=== PATIENT | female | born 1950 | race Caucasian/White ===

== ENCOUNTER 2021-12-25 14:02 | Outpatient (CLI) | payer MEDICARE, BC, SELFPAY ==
[2021-12-25 11:43] LABS: Chloride* 99 mmol/L (96-114); Potassium* 3.8 mmol/L (3.6-5.1); Sodium* 136 mmol/L (135-149)
[2021-12-25 11:46] LABS: Blood Urea Nitrogen* 14 mg/dL (7-30); Carbon Dioxide* 28 mmol/L (20-32); Cholesterol* 214 mg/dL (90-199); Creatinine* 0.7 mg/dL (0.5-1.5); Estimated Glomerular Filt Rate 94 ml/min; Glucose* 111 mg/dL (60-115)
[2021-12-25 11:47] LABS: Calcium* 9.3 mg/dL (8.4-10.6); HDL Cholesterol* 81 mg/dL (>=50); LDL Cholesterol Calculated 114 mg/dL (<100); Triglycerides* 95 mg/dL (40-149)
[2021-12-25 12:01] LABS: Vitamin D 25 Hydroxy* 46 ng/mL (30-80)
== END 2021-12-25 14:03 | disposition home or self-care (01) ==
PROVIDERS: PCP Internal Medicine; Visit Provider Internal Medicine
DX: Z00.00 Encounter for general adult medical examination without abnormal findings (principal); I10 Essential (primary) hypertension; E78.5 Hyperlipidemia, unspecified; M85.80 Other specified disorders of bone density and structure, unspecified site
CPT/HCPCS: 80048; 80061; 82306; 82652

== ENCOUNTER 2022-02-11 09:10 | Outpatient (CLI) | payer MEDICARE, BC, SELFPAY ==
--- NOTE | 2022-02-11 09:15 | CRLHL7_ITS ---
For Patients: As a result of the Century Cures Act, medical imaging exams and procedure reports are released immediately into your electronic medical record. You may view this report before your referring provider. If you have questions, please contact your health care provider. BILATERAL SCREENING MAMMOGRAM WITH COMPUTER-AIDED DETECTION AND TOMOSYNTHESIS, 02/11/2022 TECHNIQUE: CC and MLO views were obtained. These mammographic images have been obtained using full-field digital technique. These mammographic images were interpreted with the benefit of computer-aided detection. Breast tomosynthesis was used in this interpretation. COMPARISON FILM: 01/16/21, 12/08/19, 10/19/18. FINDINGS: There are scattered areas of fibroglandular density. IMPRESSION: There is no radiographic evidence for malignancy. ASSESSMENT: BI-RADS Category 1: Negative RECOMMENDATION: Routine screening mammogram in 1 year. A lay language report of this examination will be provided to the patient. DEMETRIUS MARAVILLA M.D. Diagnostic Radiologist [email or web address] Transcribed: 5:[address]/Dictated by: Demetrius Maravilla MD @ 02/11/2022 10:25:00 AM (Electronically Signed)
== END 2022-02-11 09:11 | disposition home or self-care (01) ==
PROVIDERS: PCP Internal Medicine; Visit Provider Internal Medicine
DX: Z12.31 Encounter for screening mammogram for malignant neoplasm of breast (principal)
CPT/HCPCS: 77063; 77067

== ENCOUNTER 2022-12-27 08:33 | Outpatient (CLI) | payer MEDICARE, BC, SELFPAY | END 2022-12-27 08:34 | disposition home or self-care (01) | LOC: NFLDREF 12-28 09:58 | PROVIDERS: PCP Internal Medicine; Referring Provider Internal Medicine; Visit Provider Internal Medicine | DX: I10 Essential (primary) hypertension (principal); E78.5 Hyperlipidemia, unspecified; M85.80 Other specified disorders of bone density and structure, unspecified site | CPT/HCPCS: 80048; 80061; 82306 ==

== ENCOUNTER 2023-02-12 11:23 | Outpatient (CLI) | payer MEDICARE, BC, SELFPAY ==
--- NOTE | 2023-02-12 11:30 | CRLHL7_ITS ---
For Patients: As a result of the Century Cures Act, medical imaging exams and procedure reports are released immediately into your electronic medical record. You may view this report before your referring provider. If you have questions, please contact your health care provider. BILATERAL SCREENING MAMMOGRAM WITH COMPUTER-AIDED DETECTION AND TOMOSYNTHESIS TECHNIQUE: CC and MLO views were obtained. These mammographic images have been obtained using full-field digital technique. These mammographic images were interpreted with the benefit of computer-aided detection. Breast Tomosynthesis was used in this interpretation. COMPARISON FILM: 02/11/22, 01/16/21, 12/08/19. FINDINGS: There are scattered areas of fibroglandular density IMPRESSION: There is no radiographic evidence for malignancy. ASSESSMENT: BI-RADS Category 1: Negative RECOMMENDATION: Routine screening mammogram in 1 year. A lay language report of this examination will be provided to the patient. Demetrius Butts M.D. Diagnostic Radiologist [email or web address] MIGUEL ANGEL/Dictated by: Demetrius Butts MD @ 02/12/2023 12:30:00 PM (Electronically Signed)
== END 2023-02-12 11:24 | disposition home or self-care (01) ==
LOC: MAMMO 11:24
PROVIDERS: PCP Internal Medicine; Visit Provider Internal Medicine
DX: Z12.31 Encounter for screening mammogram for malignant neoplasm of breast (principal)
CPT/HCPCS: 77063; 77067

== ENCOUNTER 2023-11-02 06:27 | Inpatient (IN) | payer MEDICARE, BC, SELFPAY ==
[2023-11-02] VITALS (7 sets, daily range): BP systolic 106–162; BP diastolic 46–73; PULSE 62–91; RESP 16–20; TEMP 36.2–36.9; O2SAT 95–100; BMI 21.9; BMI 22.8
--- NOTE | 2023-11-02 06:47 | ED.ABDPAIN ---
HPI - Abdominal Pain General Chief Complaint: Abdominal Pain <Rodrick Leon MD - Last Filed: 11/03/23 07:40> Stated Complaint: abd pain started last night <Rodrick Leon MD - Last Filed: 11/03/23 07:40> Time Seen by Provider: 11/02/23 06:41 <Rodrick Leon MD - Last Filed: 11/03/23 07:40> History of Present Illness HPI narrative: Patient is a 72-year-old woman who comes in today approximately 12 hours after the onset of nausea vomiting diarrhea. Nausea vomiting diarrhea have largely resolved but she is left with severe dull lower abdominal pain in the midline. She has no upper abdominal pain no reflux no chest pain no shortness of breath. Patient is status post appendectomy. Pain is 6/10 but persistant. <Rodrick Leon MD - Last Filed: 11/03/23 07:40> Related Data Home Medications: Home Medications ?Medication ?Instructions ?Recorded ?Confirmed calcium carbonate 600 mg-vitamin 1 tab PO DAILY 11/02/23 11/02/23 D3 5 mcg (200 unit) tablet (Calcium 600 + D(3)) simvastatin 20 mg tablet 20 mg PO HS 11/02/23 11/02/23 Previous Rx's ?Medication ?Instructions ?Recorded valsartan 80 1 tab PO DAILY #90 tabs 08/21/23 mg-hydrochlorothiazide 12.5 mg tablet <Rodrick Leon MD - Last Filed: 11/03/23 07:40> Allergies/Adverse Reactions: Allergies Allergy/AdvReac Type Severity Reaction Status Date / Time No Known Allergies Allergy Verified 11/02/23 06:44 <Rodrick Leon MD - Last Filed: 11/03/23 07:40> Review of Systems Status of ROS Reports: 10 or more systems reviewed and unremarkable except as noted in History and below <Rodrick Leon MD - Last Filed: 11/03/23 07:40> PFSH PFSH Surgical History: Surgical History History of cataract surgery ?Z98.49 - Cataract extraction status, unspecified eye (ICD-10) S/P thyroid biopsy ?Z98.890 - Other specified postprocedural states (ICD-10) History of repair of rectocele ?Z98.890 - Other specified postprocedural states (ICD-10) History of vitrectomy (2018) ?Z98.890 - Other specified postprocedural states (ICD-10) History of tonsillectomy (12/05/10) ?Z90.89 - Acquired absence of other organs (ICD-10) History of left inguinal hernia repair (01/06/12) ?Z98.890 - Other specified postprocedural states (ICD-10) ?Z87.19 - Personal history of other diseases of the digestive system (ICD-10) History of section (12/05/10) ?Z98.891 - History of uterine scar from previous surgery (ICD-10) History of appendectomy (12/05/10) ?Z90.49 - Acquired absence of other specified parts of digestive tract (ICD-10) <Rodrick Leon MD - Last Filed: 11/03/23 07:40> Social History: Social History What is your current living situation?: I presently have a place to live Problems where you live: no known problems Problems where you live details: N/A In the past 12 months, utilities in danger of being shut off: no In past 12 months, lack of transportation kept you from medical appts, meetings, work, or getting things needed for daily living: no In the past 12 mos, have been you worried that your food would run out before you had money to buy more?: never true In the past 12 mos, the food you bought just didn't last and you didn't have money to buy more?: never true Highest level of school completed/degree received: Master's degree Smoking Status: Never smoker How often do you have a drink containing alcohol: 2-4 times a month Alcohol type: wine How many standard drinks containing alcohol do you have on a typical day: 1 or 2 How often do you have six or more drinks on one occasion: Never AUDIT-C Alcohol total score: 2 Non-prescribed substance use: denies use Caffeine: Yes How often does anyone, including family, friends and others, physically hurt you: never How often does anyone, including family, friends and others, insult or talk down to you: never How often does anyone, including family, friends and others, threaten you with harm: never How often does anyone, including family, friends and others, scream or curse at you: never Little interest or pleasure in doing things: not at all Feeling down, depressed, or hopeless: not at all service: No <Rodrick Leon MD - Last Filed: 11/03/23 07:40> Exam Narrative: Exam Narrative: EXAM GENERAL: Patient appears comfortable and well. EYES: No scleral icterus. LYMPH: No supraclavicular or cervical lymphadenopathy. SKIN: Visible skin seen during exam normal or with benign process only. EXT: No dependent lower extremity pedal edema. HEART: Regular rate and rhythm with no murmurs, rubs, or gallops. LUNGS: Clear to auscultation bilaterally with no crackles or wheezes. ABD: Soft, non tender, non distended. PSYCH: Good eye contact, speech is not pressured. <Rodrick Leon MD - Last Filed: 11/03/23 07:40> Const: Vital Signs, click to edit/add: Vital Signs - 24 hr 11/02/23 08:32 11/02/23 08:44 11/02/23 09:39 Temperature 97.5 F L Pulse Rate [Left P ulse Oximeter] 69 Pulse Rate [Pulse Oximeter] 79 Respiratory Rate 16 18 Blood Pressure [Le ft Arm] 162/65 H Blood Pressure [Le ft Forearm] 146/73 H Pulse Oximetry 99 99 100 Oxygen Delivery Me thod Room Air Room Air <Rodrick Leon MD - Last Filed: 11/03/23 07:40> Vital Signs, click to edit/add: Vital Signs - 24 hr 11/02/23 08:32 11/02/23 08:44 11/02/23 09:39 Temperature 97.5 F L Pulse Rate [Left P ulse Oximeter] 69 Pulse Rate [Pulse Oximeter] 79 Respiratory Rate 16 18 Blood Pressure [Le ft Arm] 162/65 H Blood Pressure [Le ft Forearm] 146/73 H Pulse Oximetry 99 99 100 Oxygen Delivery Me thod Room Air Room Air <Cornelia Zavaleta MD - Last Filed: 11/02/23 09:02> Course Course ED Course: Patient seen examined CBC CMP amylase UA CT abdomen pelvis pending. <Rodrick Leon MD - Last Filed: 11/03/23 07:40> Reevaluation(s) Time of Reevaluation #1: 08:31 <Cornelia Zavaleta MD - Last Filed: 11/02/23 09:02> Reevaluation #1: Reviewed CT findings with patient. She does have colitis on CT. Still with significant abdominal pain, no appetite at all, nausea. Has had prior colonoscopies that were normal without polyps, did fecal testing for occult blood this past time. No travel. No NSAID use. Also reviewed the incidental findings with the liver mass uncharacterized, will need outpatient liver MRI protocol as advised by radiology, copy of the report given to them. Patient very well may need supportive cares with IV fluids and pain management until improving. Will discuss with the hospitalist. Can do trial of clears here and see if she tolerates. <Cornelia Zavaleta MD - Last Filed: 11/02/23 09:02> Consultations Consultation #1: Reviewed case with Dr. Wright, he will evaluate the patient for possible hospitalization. <Cornelia Zavaleta MD - Last Filed: 11/02/23 09:02> Time: 09:01 <Cornelia Zavaleta MD - Last Filed: 11/02/23 09:02> Vital Signs Vital signs: Initial Vital Signs Temperature 97.1 F L 11/02/23 06:44 Temperature Source Temporal Artery Scan 11/02/23 06:44 Pulse Rate 91 11/02/23 06:44 Pulse Rhythm Regular 11/02/23 06:44 Pulse Strength 3+ Normal 11/02/23 06:44 Respiratory Rate 20 11/02/23 06:44 Blood Pressure 122/63 11/02/23 06:44 Blood Pressure Mean 82 11/02/23 06:44 Blood Pressure Position Sitting 11/02/23 06:44 Pulse Oximetry 95 11/02/23 06:44 Oxygen Delivery Method Room Air 11/02/23 06:44 Vital Signs Temperature 97.1 F L 11/02/23 06:44 Pulse Rate 91 11/02/23 06:44 Respiratory Rate 20 11/02/23 06:44 Blood Pressure 122/63 11/02/23 06:44 Pulse Oximetry 95 11/02/23 06:44 Oxygen Delivery Method Room Air 11/02/23 06:44 Temperature 98.1 F 11/03/23 03:00 Pulse Rate 61 11/03/23 03:00 Respiratory Rate 16 11/03/23 03:00 Blood Pressure 109/58 L 11/03/23 03:00 Pulse Oximetry 93 11/03/23 03:00 Oxygen Delivery Method Room Air 11/03/23 03:00 <Rodrick Leon MD - Last Filed: 11/03/23 07:40> Initial Vital Signs Temperature 97.1 F L 11/02/23 06:44 Temperature Source Temporal Artery Scan 11/02/23 06:44 Pulse Rate 91 11/02/23 06:44 Pulse Rhythm Regular 11/02/23 06:44 Pulse Strength 3+ Normal 11/02/23 06:44 Respiratory Rate 20 11/02/23 06:44 Blood Pressure 122/63 11/02/23 06:44 Blood Pressure Mean 82 11/02/23 06:44 Blood Pressure Position Sitting 11/02/23 06:44 Pulse Oximetry 95 11/02/23 06:44 Oxygen Delivery Method Room Air 11/02/23 06:44 Vital Signs Temperature 97.1 F L 11/02/23 06:44 Pulse Rate 91 11/02/23 06:44 Respiratory Rate 20 11/02/23 06:44 Blood Pressure 122/63 11/02/23 06:44 Pulse Oximetry 95 11/02/23 06:44 Oxygen Delivery Method Room Air 11/02/23 06:44 Temperature 98.1 F 11/03/23 03:00 Pulse Rate 61 11/03/23 03:00 Respiratory Rate 16 11/03/23 03:00 Blood Pressure 109/58 L 11/03/23 03:00 Pulse Oximetry 93 11/03/23 03:00 Oxygen Delivery Method Room Air 11/03/23 03:00 <Cornelia Zavaleta MD - Last Filed: 11/02/23 09:02> Medications Administered Medications: Generic Name Dose Route Start Last Admin Trade Name Freq PRN Reason Stop Dose Admin Enoxaparin Sodium 40 mg 11/02/23 21:00 11/02/23 22:13 Enoxaparin 40 Mg/0.4 Ml Inj SUBCUT Not Given HS SASHA Hydromorphone HCl 0.5 mg 11/02/23 11:01 11/03/23 05:05 Hydromorphone 0.5 Mg/0.5 Ml Inj IVP 0.5 mg Q1H PRN Administration Lactated Ringer's 1,000 mls @ 125 mls/hr 11/02/23 11:05 11/03/23 03:04 Lactated Ringers 1000 Ml IV 125 mls/hr .Q8H SASHA Administration Ciprofloxacin 400 mg in 200 mls @ 200 mls/hr 11/02/23 11:30 11/03/23 01:13 Ciprofloxacin IVPB Infused Q12H SASHA Infusion Metronidazole 500 mg in 100 mls @ 100 mls/hr 11/02/23 12:30 11/03/23 06:38 Metronidazole IVPB Infused Q8H SASHA Infusion Ondansetron HCl 4 mg 11/02/23 11:02 11/03/23 05:05 Ondansetron 2 Mg/Ml Inj IVP 4 mg Q4H PRN Administration Nausea Simvastatin 20 mg 11/02/23 22:21 11/02/23 22:30 Simvastatin 20 Mg Tablet PO 20 mg HS SASHA Administration Sodium Chloride 5 ml 11/02/23 21:00 11/02/23 22:13 Sodium Chloride 0.9 % (Flush) 10 Ml Syringe IVF Not Given BID SASHA Discontinued Medications Generic Name Dose Route Start Last Admin Trade Name Freq PRN Reason Stop Dose Admin Lactated Ringer's 500 mls @ 500 mls/hr 11/02/23 08:31 11/02/23 08:41 Lactated Ringers 500 Ml IV 11/02/23 09:30 500 mls/hr .Q1H ONE Administration Morphine Sulfate 2 mg 11/02/23 08:31 11/02/23 08:41 Morphine 2 Mg/Ml Inj IVP 11/02/23 08:32 2 mg ONCE ONE Administration Ondansetron HCl 4 mg 11/02/23 08:31 11/02/23 08:41 Ondansetron 2 Mg/Ml Inj IVP 11/02/23 08:32 4 mg ONCE ONE Administration Simvastatin 20 mg 11/02/23 22:00 11/03/23 01:15 Simvastatin 20 Mg Tablet PO Not Given HS SASHA <Rodrick Leon MD - Last Filed: 11/03/23 07:40> Generic Name Dose Route Start Last Admin Trade Name Freq PRN Reason Stop Dose Admin Enoxaparin Sodium 40 mg 11/02/23 21:00 11/02/23 22:13 Enoxaparin 40 Mg/0.4 Ml Inj SUBCUT Not Given HS SASHA Hydromorphone HCl 0.5 mg 11/02/23 11:01 11/03/23 05:05 Hydromorphone 0.5 Mg/0.5 Ml Inj IVP 0.5 mg Q1H PRN Administration Lactated Ringer's 1,000 mls @ 125 mls/hr 11/02/23 11:05 11/03/23 03:04 Lactated Ringers 1000 Ml IV 125 mls/hr .Q8H SASHA Administration Ciprofloxacin 400 mg in 200 mls @ 200 mls/hr 11/02/23 11:30 11/03/23 01:13 Ciprofloxacin IVPB Infused Q12H SASHA Infusion Metronidazole 500 mg in 100 mls @ 100 mls/hr 11/02/23 12:30 11/03/23 06:38 Metronidazole IVPB Infused Q8H SASHA Infusion Ondansetron HCl 4 mg 11/02/23 11:02 11/03/23 05:05 Ondansetron 2 Mg/Ml Inj IVP 4 mg Q4H PRN Administration Nausea Simvastatin 20 mg 11/02/23 22:21 11/02/23 22:30 Simvastatin 20 Mg Tablet PO 20 mg HS SASHA Administration Sodium Chloride 5 ml 11/02/23 21:00 11/02/23 22:13 Sodium Chloride 0.9 % (Flush) 10 Ml Syringe IVF Not Given BID SASHA Discontinued Medications Generic Name Dose Route Start Last Admin Trade Name Brody PRN Reason Stop Dose Admin Lactated Ringer's 500 mls @ 500 mls/hr 11/02/23 08:31 11/02/23 08:41 Lactated Ringers 500 Ml IV 11/02/23 09:30 500 mls/hr .Q1H ONE Administration Morphine Sulfate 2 mg 11/02/23 08:31 11/02/23 08:41 Morphine 2 Mg/Ml Inj IVP 11/02/23 08:32 2 mg ONCE ONE Administration Ondansetron HCl 4 mg 11/02/23 08:31 11/02/23 08:41 Ondansetron 2 Mg/Ml Inj IVP 11/02/23 08:32 4 mg ONCE ONE Administration Simvastatin 20 mg 11/02/23 22:00 11/03/23 01:15 Simvastatin 20 Mg Tablet PO Not Given HS SASHA <Cornelia Zavaleta MD - Last Filed: 11/02/23 09:02> MDM - Abdominal Pain Lab Data Attestation: I reviewed the patient's lab results. <Cornelia Zavaleta MD - Last Filed: 11/02/23 09:02> Labs: Lab Results 11/02/23 11/02/23 Range/Units 07:00 07:35 WBC 12.70 H (4.50-11.00) K/uL RBC 4.45 (4.00-5.20) m/uL Hgb 13.5 (12.0-16.0) gm/dL Hct 39.4 (33.0-51.0) % MCV 89 (80-100) fL MCH 30 (26-34) pg MCHC 34 (32-36) gm/dL RDW Coeff of Cheryl 12.7 (11.5-15.5) % Plt Count 222 (140-440) K/uL Neut % (Auto) 87.6 H (42.0-72.0) % Lymph % (Auto) 7.2 L (20-44) % [place] % (Auto) 5.0 (0.0-11.0) % Eos % (Auto) 0.0 (0.0-7.0) % Baso % (Auto) 0.1 (0.0-3.0) % Neut # (Auto) 11.10 H (1.7-7.0) K/uL Lymph # (Auto) 0.90 (0.90-2.90) K/uL [place] # (Auto) 0.60 (0.00-0.90) K/UL Eos # (Auto) 0.00 (0.00-0.50) K/uL Baso # (Auto) 0.00 (0.00-0.30) K/uL Abs Immat Gran (auto) 0.00 (0.00-0.30) K/uL Imm/Tot Granulo (auto) 0.1 % Sodium 135 (135-149) mmol/L Potassium 3.4 L (3.6-5.1) mmol/L Chloride 100 (96-114) mmol/L Carbon Dioxide 23 (20-32) mmol/L Anion Gap 12 (7-15) mEq/L BUN 19 (7-30) mg/dL Creatinine 0.7 (0.5-1.5) mg/dL Estimated Creat Clear 39.50 Estimated GFR 93 ml/min Glucose 113 (60-115) mg/dL Calcium 9.3 (8.4-10.6) mg/dL Total Bilirubin 0.9 (0.1-1.5) mg/dL AST 37 H (12-35) U/L ALT 21 (4-35) U/L Alkaline Phosphatase 72 (40-150) U/L Total Protein 7.7 (6.0-8.3) g/dL Albumin 5.1 H (3.3-5.0) g/dL Amylase 76 (18-89) U/L Urine Color Yellow (Yellow) Urine Appearance Clear (Clear) Urine pH 6.5 (5.0-8.5) Ur Specific [place] 1.025 (1.000-1.030) Urine Protein Negative (Negative) Urine Glucose (UA) Negative (Negative) Urine Ketones 3+ A (Negative) Urine Blood 2+ A (Negative) Urine Nitrite Negative (Negative) Urine Bilirubin Negative (Negative) Urine Urobilinogen 0.2 (0.2-1.0) Ur Leukocyte Esterase Negative (Negative) Urine RBC 2-5 A (0-2) Urine WBC 0-2 (0-5) Urine WBC Clumps None (None) Ur Squamous Epith Cells Few (None-Few) Urine Bacteria Few A (None) <Rodrick Leon MD - Last Filed: 11/03/23 07:40> Lab Results 11/02/23 11/02/23 Range/Units 07:00 07:35 WBC 12.70 H (4.50-11.00) K/uL RBC 4.45 (4.00-5.20) m/uL Hgb 13.5 (12.0-16.0) gm/dL Hct 39.4 (33.0-51.0) % MCV 89 (80-100) fL MCH 30 (26-34) pg MCHC 34 (32-36) gm/dL RDW Coeff of Cheryl 12.7 (11.5-15.5) % Plt Count 222 (140-440) K/uL Neut % (Auto) 87.6 H (42.0-72.0) % Lymph % (Auto) 7.2 L (20-44) % [place] % (Auto) 5.0 (0.0-11.0) % Eos % (Auto) 0.0 (0.0-7.0) % Baso % (Auto) 0.1 (0.0-3.0) % Neut # (Auto) 11.10 H (1.7-7.0) K/uL Lymph # (Auto) 0.90 (0.90-2.90) K/uL [place] # (Auto) 0.60 (0.00-0.90) K/UL Eos # (Auto) 0.00 (0.00-0.50) K/uL Baso # (Auto) 0.00 (0.00-0.30) K/uL Abs Immat Gran (auto) 0.00 (0.00-0.30) K/uL Imm/Tot Granulo (auto) 0.1 % Sodium 135 (135-149) mmol/L Potassium 3.4 L (3.6-5.1) mmol/L Chloride 100 (96-114) mmol/L Carbon Dioxide 23 (20-32) mmol/L Anion Gap 12 (7-15) mEq/L BUN 19 (7-30) mg/dL Creatinine 0.7 (0.5-1.5) mg/dL Estimated Creat Clear 39.50 Estimated GFR 93 ml/min Glucose 113 (60-115) mg/dL Calcium 9.3 (8.4-10.6) mg/dL Total Bilirubin 0.9 (0.1-1.5) mg/dL AST 37 H (12-35) U/L ALT 21 (4-35) U/L Alkaline Phosphatase 72 (40-150) U/L Total Protein 7.7 (6.0-8.3) g/dL Albumin 5.1 H (3.3-5.0) g/dL Amylase 76 (18-89) U/L Urine Color Yellow (Yellow) Urine Appearance Clear (Clear) Urine pH 6.5 (5.0-8.5) Ur Specific [place] 1.025 (1.000-1.030) Urine Protein Negative (Negative) Urine Glucose (UA) Negative (Negative) Urine Ketones 3+ A (Negative) Urine Blood 2+ A (Negative) Urine Nitrite Negative (Negative) Urine Bilirubin Negative (Negative) Urine Urobilinogen 0.2 (0.2-1.0) Ur Leukocyte Esterase Negative (Negative) Urine RBC 2-5 A (0-2) Urine WBC 0-2 (0-5) Urine WBC Clumps None (None) Ur Squamous Epith Cells Few (None-Few) Urine Bacteria Few A (None) <Cornelia Zavaleta MD - Last Filed: 11/02/23 09:02> Imaging Data CT scan - abdomen: Attestation: I have reviewed the pertinent imaging results. <Cornelia Zavaleta MD - Last Filed: 11/02/23 09:02> Radiologist's impression: Patient: [facility] Facility:?[facility] Patient ID:?[id number] Site Patient ID:?[id number]. Site :?[id number] Study:?CT-Abdomen/Pelvis W/ISOVUE 370 58CC-11/02/2023 7:52:49 AM Ordering Physician:Jersey Mensah Final Report: INDICATION: Abdominal pain, lower abdominal pain started around 7 p.m. on 11/01/2023. COMPARISON: None. TECHNIQUE: CT of the abdomen and pelvis with intravenous contrast. Multiplanar axial, coronal, and sagittal reformats were reconstructed. Contrast: 58 mL Isovue 370. FINDINGS: Lung bases: Small focal area of chronic volume loss in the left lower lobe. There are few round air-filled cysts with thin imperceptible guerrero. No worrisome findings in the lung bases. Liver: The liver is not enlarged or cirrhotic. There is a 2 centimeter indeterminate mass in segment III. There is a smaller indeterminate hypoenhancing lesion further laterally in segment 3 that measures 0.6 centimeters. There is a 2 centimeter lesion in hepatic segment that demonstrates peripheral nodular arterial hyperenhancement is consistent with a benign hemangioma. Patent hepatic vasculature. Gallbladder and bile ducts: There is a 1 centimeter hyperdense versus hyperenhancing mass either immediately adjacent to or in the gallbladder fundus. Gallbladder otherwise appears normal. No bile duct dilation. Pancreas: Normal. Spleen: Normal. Adrenal glands: Normal. Kidneys: Minimal focal right renal scarring/volume loss. No cyst or solid mass. No calculi. No urinary tract dilation. Urinary bladder: Normal. Pelvis: No cyst or mass. Vessels: Heavy atherosclerotic vascular calcifications. The mesenteric vessels appear to be widely patent. Bowel: Thick walled descending colon with bowel wall thickness up to 1 centimeter. There is submucosal edema and mucosal hyperemia. No pneumatosis. No mesenteric or portal venous gas. No free air. Appendix is not definitively seen. No dilated or inflamed appearing small bowel. Normal CT appearance of the stomach. Small stool burden. Lymph nodes: No adenopathy. Peritoneum: No ascites. Abdominal wall: No hernia. Bones: No fractures. No focal worrisome bone lesions. IMPRESSION: 1. Colitis of the descending colon. No mesenteric arterial or venous embolus or thrombus. 2. There is a 1 centimeter hyperdense or hyperenhancing lesion at the gallbladder fundus. Difficult to tell if it is arising from the gallbladder or the immediately adjacent liver. 3. There is a 2 centimeter indeterminate mass in the left lobe of the liver. 4. Recommend MR abdomen without and with IV contrast, liver mass protocol. This can be deferred until after resolution of the patient`s colitis but should be performed soon. Please note that all CT scans at this facility use dose modulation, iterative reconstruction, and/or weight-based dosing when appropriate to reduce radiation dose to as low as reasonably achievable. Dictated by Rossana Singh MD @ 11/02/2023 8:19:16 AM (Electronic Signature) <Cornelia Zavaleta MD - Last Filed: 11/02/23 09:02> Discharge Plan Discharge Clinical Impression: Colitis Abdominal pain Qualifiers: Abdominal location: lower abdomen, unspecified Qualified Code(s): R10.30 - Lower abdominal pain, unspecified <Rodrick Leon MD - Last Filed: 11/03/23 07:40> Patient Disposition: Admitted As Observation <Rodrick Leon MD - Last Filed: 11/03/23 07:40>
[2023-11-02 07:13] LABS: Basophils Percent Auto 0.1 % (0.0-3.0); Hematocrit 39.4 % (33.0-51.0); Hemoglobin* 13.5 gm/dL (12.0-16.0); Immature Granulocytes Pct Auto 0.1 %; Lymphocytes Percent Auto 7.2 % (20-44); Mean Corpuscular HGB Conc 34 gm/dL (32-36); Mean Corpuscular Hemoglobin 30 pg (26-34); Mean Corpuscular Volume 89 fL (80-100); Neutrophils Percent Auto 87.6 % (42.0-72.0); Platelet Count* 222 K/uL (140-440); RDW Coefficient of Variation % 12.7 % (11.5-15.5); Red Blood Count 4.45 m/uL (4.00-5.20)
[2023-11-02 07:16] LABS: Slide Review Reflex No
[2023-11-02 07:22] LABS: Albumin* 5.1 g/dL (3.3-5.0); Chloride* 100 mmol/L (96-114)
[2023-11-02 07:23] LABS: Potassium* 3.4 mmol/L (3.6-5.1); Sodium* 135 mmol/L (135-149)
[2023-11-02 07:25] LABS: Alanine Aminotransferase* 21 U/L (4-35); Alkaline Phosphatase* 72 U/L (40-150); Amylase* 76 U/L (18-89); Anion Gap 12 mEq/L (7-15); Aspartate Amino Transferase* 37 U/L (12-35); Bilirubin Total* 0.9 mg/dL (0.1-1.5); Blood Urea Nitrogen* 19 mg/dL (7-30); Carbon Dioxide* 23 mmol/L (20-32); Creatinine* 0.7 mg/dL (0.5-1.5); Estimated Glomerular Filt Rate 93 ml/min; Glucose* 113 mg/dL (60-115); Total Protein* 7.7 g/dL (6.0-8.3)
[2023-11-02 07:26] LABS: Calcium* 9.3 mg/dL (8.4-10.6)
[2023-11-02 08:05] LABS: Appearance Urine Clear (Clear); Bilirubin Urine Negative (Negative); Blood Urine 2+ (Negative); Color Urine Yellow (Yellow); Glucose Urine Negative (Negative); Ketones Urine 3+ (Negative); Leukocyte Esterase Urine Negative (Negative); Nitrite Urine Negative (Negative); Protein Urine Negative (Negative); Specific Gravity Urine 1.025 (1.000-1.030); Urobilinogen Urine 0.2 (0.2-1.0); pH Urine 6.5 (5.0-8.5)
[2023-11-02 08:26] LABS: Bacteria Urine Few; Squamous Epithelial Cell Urine Few (None-Few); WBC Urine 0-2 (0-5)
[2023-11-02] MEDS: MORPHINE 2 MG/ML inj IVP (08:41)
[2023-11-02] MEDS: LACTATED RINGERS 500 ML 500 ML IV (08:41)
[2023-11-02] MEDS: ONDANSETRON 2 MG/ML inj 4 MG IVP ×2 (08:41→23:32)
--- NOTE | 2023-11-02 08:59 | P.IMHP_ITS ---
Hospitalist- H&P: HPI History of Present Illness Date Seen: 11/02/23 Chief complaint: abd pain started last night Narrative: Maryam Elizalde is a 72 year old female who presented to ED for evaluation of abdominal pain. The patient has had 1-2 days of waxing and waning generalized abdominal pain. She endorses nausea, vomiting, liquid diarrhea. She endorses subjective fever. She denies chest pain and sob. denies back pain. In the ED CT AP notable for descending colon colitis. She denies recent antibotic use. Denies melena and hematochezia. In the ED she was afebrile. WBC 12.7, potassium 3.4. She was given IVF and pain control and admitted for further evaluation. IMPRESSION: 1. Colitis of the descending colon. No mesenteric arterial or venous embolus or thrombus. 2. There is a 1 centimeter hyperdense or hyperenhancing lesion at the gallbladder fundus. Difficult to tell if it is arising from the gallbladder or the immediately adjacent liver. 3. There is a 2 centimeter indeterminate mass in the left lobe of the liver. 4. Recommend MR abdomen without and with IV contrast, liver mass protocol. This can be deferred until after resolution of the patient`s colitis but should be performed soon. Review of Systems Status of ROS: Reports: 10 or more systems reviewed and unremarkable except as noted in History and below [facility] Surgical History History of cataract surgery ?Z98.49 - Cataract extraction status, unspecified eye (ICD-10) S/P thyroid biopsy ?Z98.890 - Other specified postprocedural states (ICD-10) History of repair of rectocele ?Z98.890 - Other specified postprocedural states (ICD-10) History of vitrectomy (2018) ?Z98.890 - Other specified postprocedural states (ICD-10) History of tonsillectomy (12/05/10) ?Z90.89 - Acquired absence of other organs (ICD-10) History of left inguinal hernia repair (01/06/12) ?Z98.890 - Other specified postprocedural states (ICD-10) ?Z87.19 - Personal history of other diseases of the digestive system (ICD-10) History of section (12/05/10) ?Z98.891 - History of uterine scar from previous surgery (ICD-10) History of appendectomy (12/05/10) ?Z90.49 - Acquired absence of other specified parts of digestive tract (ICD- 10) Social History What is your current living situation?: I presently have a place to live Problems where you live: no known problems Problems where you live details: N/A In the past 12 months, utilities in danger of being shut off: no In past 12 months, lack of transportation kept you from medical appts, meetings, work, or getting things needed for daily living: no In the past 12 mos, have been you worried that your food would run out before you had money to buy more?: never true In the past 12 mos, the food you bought just didn't last and you didn't have money to buy more?: never true Highest level of school completed/degree received: Master's degree Smoking Status: Never smoker How often do you have a drink containing alcohol: 2-4 times a month Alcohol type: wine How many standard drinks containing alcohol do you have on a typical day: 1 or 2 How often do you have six or more drinks on one occasion: Never AUDIT-C Alcohol total score: 2 Non-prescribed substance use: denies use Caffeine: Yes How often does anyone, including family, friends and others, physically hurt you : never How often does anyone, including family, friends and others, insult or talk down to you: never How often does anyone, including family, friends and others, threaten you with harm: never How often does anyone, including family, friends and others, scream or curse at you: never Little interest or pleasure in doing things: not at all Feeling down, depressed, or hopeless: not at all service: No Meds Home Medications and Allergies Home Medications ?Medication ?Instructions ?Recorded ?Confirmed ?Type calcium carbonate 600 mg-vitamin 1 tab PO DAILY 11/02/23 11/02/23 History D3 5 mcg (200 unit) tablet (Calcium 600 + D(3)) simvastatin 20 mg tablet 20 mg PO HS 11/02/23 11/02/23 History Allergies Allergy/AdvReac Type Severity Reaction Status Date / Time No Known Allergies Allergy Verified 11/02/23 06:44 Exam Narrative: Exam Narrative: Gen: no acute distress HEENT: NCAT EOMI mmm Neck: Supple CV: RRR normal s1 s2 Lungs: CTAB Abd: Soft,nt, nd Neuro: Alert, oriented, CN grossly intact; nonfocal screening?exam Psych: appropriate affect MSK: age appropriate muscle mass Skin; Warm, dry no rash on face Const: Vital Signs, click to edit/add: Vital Signs - 24 hr 11/02/23 06:44 11/02/23 08:32 11/02/23 08:44 Temperature 97.1 F L Pulse Rate [Pulse Oximeter] 91 79 Respiratory Rate 20 16 Blood Pressure [Le ft Forearm] 122/63 146/73 H Pulse Oximetry 95 99 99 Oxygen Delivery Me thod Room Air Room Air Hospitalist - H&P: Result Labs Labs: Short CBC 11/02/23 Range/Units 07:00 WBC 12.70 H (4.50-11.00) K/uL Hgb 13.5 (12.0-16.0) gm/dL Hct 39.4 (33.0-51.0) % Plt Count 222 (140-440) K/uL BMP 11/02/23 07:00 Sodium 135 Potassium 3.4 L Chloride 100 Carbon Dioxide 23 BUN 19 Creatinine 0.7 Glucose 113 Calcium 9.3 Liver Function 11/02/23 Range/Units 07:00 Total Bilirubin 0.9 (0.1-1.5) mg/dL AST 37 H (12-35) U/L ALT 21 (4-35) U/L Alkaline Phosphatase 72 (40-150) U/L Albumin 5.1 H (3.3-5.0) g/dL Urine 11/02/23 Range/Units 07:35 Urine Color Yellow (Yellow) Urine Appearance Clear (Clear) Urine pH 6.5 (5.0-8.5) Ur Specific [place] 1.025 (1.000-1.030) Urine Protein Negative (Negative) Urine Glucose (UA) Negative (Negative) Assessment and Plan Assessment and plan (1) Colitis: Problem comment: CT AP showing Colitis of the descending colon. No mesenteric arterial or venous embolus or thrombus. Plan: check c diff pcr, enteric pathogen panel/stool cx; start cipro/flagyl Status: Acute (2) Essential hypertension: Problem comment: Dxed 12/05, medication started 12/05, switched to valsartan/HCTZ due to post nasal drip IV hydralazine for SBP >180; hold pepito inhibitor Status: Acute (3) Liver lesion: Problem comment: There is a 2 centimeter indeterminate mass in the left lobe of the liver. Recommend MR abdomen without and with IV contrast, liver mass protocol. This can be deferred until after resolution of the patient`s colitis but should be performed soon. There is a 1 centimeter hyperdense or hyperenhancing lesion at the gallbladder fundus. Difficult to tell if it is arising from the gallbladder or the immediately adjacent liver. Status: Acute (4) Hyperlipidemia: Problem comment: LDL 207 11/28, statin started 11/28, simvastatin increased 12/05 will hold statin for now Status: Acute Plan Code status-full DVT ppx-lovenox
[2023-11-02] MEDS: LACTATED RINGERS 1000 ML 1,000 ML 125 ML IV ×2 (11:11→17:43)
[2023-11-02] MEDS: HYDROmorphone 0.5 mg/0.5 ml inj IVP ×4 (11:11→23:32)
[2023-11-02] MEDS: CIPROFLOXACIN 400 MG/200 ML PIGGYBACK 200 MG IVPB ×2 (11:17→23:31)
[2023-11-02] MEDS: metroNIDAZOLE 500 MG/100 ML PIGGYBACK 100 MG IVPB ×2 (12:29→22:15)
--- NOTE | 2023-11-02 17:12 | PC.NURSE ---
Shift Summary: Patient pleasant and cooperative. C/o pain in lower abdomen between 3-5/10, managed with PRN medication see MAR. Vitals stable, denies SOB. Up independently in room. Clear liquid diet, has had sips of water. No BM, bowel sounds active. New IV placed in right forearm. to bring home medication.
[2023-11-02] MEDS: SIMVASTATIN 20 MG TABLET PO (22:30)
[2023-11-03 03:00] VITALS: BP 109/58; PULSE 61; RESP 16; TEMP 36.7; O2SAT 93
[2023-11-03] MEDS: LACTATED RINGERS 1000 ML 1,000 ML 125 ML IV ×3 (03:04→20:29)
[2023-11-03] MEDS: ONDANSETRON 2 MG/ML inj 4 MG IVP ×2 (05:05→11:55)
[2023-11-03] MEDS: metroNIDAZOLE 500 MG/100 ML PIGGYBACK 100 MG IVPB ×3 (05:05→20:29)
[2023-11-03] MEDS: HYDROmorphone 0.5 mg/0.5 ml inj IVP ×2 (05:05→11:54)
[2023-11-03 06:25] LABS: Hematocrit 33.1 % (33.0-51.0); Mean Corpuscular HGB Conc 33 gm/dL (32-36); Mean Corpuscular Hemoglobin 30 pg (26-34); Mean Corpuscular Volume 91 fL (80-100); Platelet Count* 174 K/uL (140-440); Red Blood Count 3.62 m/uL (4.00-5.20); White Blood Count* 12.73 K/uL (4.50-11.00)
[2023-11-03 06:32] LABS: Slide Review Reflex No
--- NOTE | 2023-11-03 06:35 | PC.NURSE ---
Pt is pleasant and conversational. Pain and nausea treated with PRN meds per MAR with relief. No complaints of sleep by pt. Up independently in room. Per pt she would like to walk in the halls today when arrives.
[2023-11-03 06:38] LABS: Chloride* 103 mmol/L (96-114); Potassium* 3.9 mmol/L (3.6-5.1); Sodium* 134 mmol/L (135-149)
[2023-11-03 06:41] LABS: Anion Gap 3 mEq/L (7-15); Blood Urea Nitrogen* 10 mg/dL (7-30); Calcium* 8.4 mg/dL (8.4-10.6); Carbon Dioxide* 28 mmol/L (20-32); Creatinine* 0.7 mg/dL (0.5-1.5); Estimated Glomerular Filt Rate 93 ml/min; Glucose* 96 mg/dL (60-115)
[2023-11-03 07:00] VITALS: BP 106/59; PULSE 60; PULSE 61; RESP 18; TEMP 36.9; O2SAT 96
[2023-11-03] MEDS: SODIUM CHLORIDE 0.9 % (FLUSH) 10 ML SYRINGE 5 ML IVF (09:20)
[2023-11-03] MEDS: VALSARTAN 80 MG TABLET PO (09:22)
[2023-11-03 11:00] VITALS: BP 126/53; PULSE 60; RESP 18; TEMP 36.7; O2SAT 98
[2023-11-03] MEDS: CIPROFLOXACIN 400 MG/200 ML PIGGYBACK 200 MG IVPB ×2 (11:55→23:49)
--- NOTE | 2023-11-03 13:27 | PM.IMPN1 ---
Progress Note: A&P Assessment and plan (1) Colitis: Problem details: CT AP showing Colitis of the descending colon. No mesenteric arterial or venous embolus or thrombus. Continue Cipro and Flagyl, plan to transition to oral prior to discharge Maintenance IVF Clear liquid diet - will plan to ADAT when n/v resolves No further stools since admission, plan for c diff pcr, enteric pathogen panel/stool cx when able (though less likely now that diarrhea has resolved) WBC essentially unchanged, remains afebrile, recheck in a.m. Status: Acute (2) Essential hypertension: Problem details: Dxed 12/05, medication started 12/05, currently on valsartan/HCTZ IV hydralazine for SBP >180 Status: Acute (3) Liver lesion: Problem details: There is a 2 centimeter indeterminate mass in the left lobe of the liver. Recommend MR abdomen without and with IV contrast, liver mass protocol. This can be deferred until after resolution of the patient`s colitis but should be performed soon. Additionally, there is a 1 centimeter hyperdense or hyperenhancing lesion at the gallbladder fundus. Difficult to tell if it is arising from the gallbladder or the immediately adjacent liver. Outpatient follow-up Status: Acute (4) Hyperlipidemia: Problem details: LDL 207 11/28, statin started 11/28, simvastatin increased 12/05 Status: Acute Plan Continue IV antibiotics, plan to ADAT when tolerating clears without nausea, vomiting, abdominal pain Time Spent With Patient Total time spent: Total time spent caring for the patient today was 45 minutes. This includes time spent for the visit reviewing the chart, time spent during the visit, time spent after the visit and documentation and planning in coordination of care. Subjective Date Seen: 11/03/23 Interval history: Patient is feeling better this morning. Has not had any further stools since admission. Asking nursing staff to eat so that she can poop. However, admits to vomiting after attempting clears last night. Left-sided abdominal pain is improving. She has remained afebrile. Exam Narrative: Exam Narrative: PHYSICAL EXAM General: Pleasant, conversant, NAD HEENT: Normocephalic, atraumatic, sclera white, EOMI, oral mucosa moist Cardiovascular: RRR, S1S2. No pitting edema Pulmonary: CTA bilaterally without rhonchi, rales, expiratory wheezes. No dyspnea on room air Abdominal: Soft, nondistended, NTTP on exam this morning Neurological: Alert, answering questions appropriately, cranial nerves intact, no focal findings Extremities: No gross joint deformity or swelling. AROMI. Neurovascularly intact Skin: Warm, dry. Const: Vital Signs, click to edit/add: Vital Signs - 24 hr 11/02/23 15:00 11/02/23 20:05 11/02/23 23:30 Temperature 98.5 F 97.9 F Pulse Rate [Left P ulse Oximeter] 71 68 62 Respiratory Rate 16 16 16 Blood Pressure [Le ft Arm] 108/56 L 106/46 L Pulse Oximetry 100 99 Oxygen Delivery Me thod Room Air Room Air 11/02/23 23:30 11/03/23 03:00 11/03/23 07:00 Temperature 98.1 F 98.1 F 98.4 F Pulse Rate [Left P ulse Oximeter] 62 61 61 Respiratory Rate 16 16 18 Blood Pressure [Le ft Arm] 112/58 L 109/58 L 106/59 L Pulse Oximetry 98 93 96 Oxygen Delivery Me thod Room Air Room Air Room Air 11/03/23 07:00 11/03/23 11:00 Temperature 98.1 F Pulse Rate [Left P ulse Oximeter] 60 60 Respiratory Rate 18 18 Blood Pressure [Le ft Arm] 126/53 L Pulse Oximetry 98 Oxygen Delivery Me thod Room Air Labs Labs: Laboratory Results - last 24 hr 11/03/23 06:06 WBC 12.73 H RBC 3.62 L Hgb 11.0 L Hct 33.1 MCV 91 MCH 30 MCHC 33 Plt Count 174 Sodium 134 L Potassium 3.9 Chloride 103 Carbon Dioxide 28 Anion Gap 3 L BUN 10 Creatinine 0.7 Estimated Creat Clear 39.50 Estimated GFR 93 Glucose 96 Calcium 8.4
--- NOTE | 2023-11-03 14:40 | PC.NURSE ---
End of shift: A&O. VSS, afebrile. During morning med pass, I gave the patient losartan, I then discussed with her how her home medication is losartan-hydrochlorothiazide combined, which is why she has hydrochlorothiazide as well, patient declined the hydrochlorothiazide. She wanted her same medications from home, which had not been verified by pharmacy yet. She was upset that she was going to have to pay for the medication since it wasnt hers from home. Patient reports pain this shift, managed with PRN medication, see MAR. Patient states she doesnt have much of an appetite, and when she does eat she feels nauseas, managed with PRN medication, see MAR. Up independently in room. Clear liquid diet.
[2023-11-03 15:30] VITALS: BP 146/73; PULSE 60; PULSE 76; RESP 16; TEMP 36.6; O2SAT 98
[2023-11-03] MEDS: ACETAMINOPHEN 325 MG TABLET 650 MG PO (18:38)
[2023-11-03 19:00] VITALS: BP 153/79; PULSE 78; RESP 16; TEMP 36.6; O2SAT 96
[2023-11-03] MEDS: SIMVASTATIN 20 MG TABLET PO (20:34)
[2023-11-03 21:33] LABS: C.Difficile Negative (Negative); CDIFFEPI 027 PRESUMPTIVE NEGATIVE (Negative)
--- NOTE | 2023-11-03 22:59 | PC.NURSE ---
SHIFT NOTE 15-23: Pt A&O pleasant and cooperative. Pain 3/10, PRN Tylenol given x1, pt reported relief, declined oxycodone and Dilaudid. Abdomen is soft, pt had one XS bloody MD KOURTNEY updated, sample sent to lab. Pt tolerated clear liquid diet for supper, one cup of vegetable broth and a couple bites of jello tolerated well, denies nausea, no emesis. Denies CP and SOB. VSS on RA. Pt up in the halls ambulating independently multiple times tonight to encourage more gas mobilization.
[2023-11-04] VITALS (7 sets, daily range): BP systolic 137–189; BP diastolic 68–78; PULSE 61–95; RESP 12–18; TEMP 36.6–37.3; O2SAT 95–98
[2023-11-04] MEDS: ACETAMINOPHEN 325 MG TABLET 650 MG PO (00:39)
[2023-11-04] MEDS: metroNIDAZOLE 500 MG/100 ML PIGGYBACK 100 MG IVPB ×3 (04:31→20:41)
--- NOTE | 2023-11-04 06:47 | PC.NURSE ---
Shift note ([id number]): The pt has been pleasant and cooperative; c/o of mild abdominal bloating pain; managed with Heating pad and Tylenol. The pt stated that she had x1 small liquid blood stool. Denied nausea or vomiting this shift; The pt stated that she is feeling better compared to yesterday. LR has been running at 125 ml/hr Continuously. No fever noted. The pt has been tolerating IV ABX without any difficulties
[2023-11-04 06:49] LABS: Hematocrit 32.1 % (33.0-51.0); Hemoglobin* 10.7 gm/dL (12.0-16.0); Mean Corpuscular HGB Conc 33 gm/dL (32-36); Mean Corpuscular Hemoglobin 30 pg (26-34); Mean Corpuscular Volume 91 fL (80-100); Platelet Count* 161 K/uL (140-440); Red Blood Count 3.54 m/uL (4.00-5.20); White Blood Count* 7.12 K/uL (4.50-11.00)
[2023-11-04 06:50] LABS: Slide Review Reflex No
[2023-11-04 07:03] LABS: Chloride* 106 mmol/L (96-114)
[2023-11-04 07:04] LABS: Potassium* 3.2 mmol/L (3.6-5.1); Sodium* 135 mmol/L (135-149)
[2023-11-04 07:06] LABS: Creatinine* 0.6 mg/dL (0.5-1.5); Estimated Glomerular Filt Rate 97 ml/min
[2023-11-04 07:07] LABS: Anion Gap 4 mEq/L (7-15); Blood Urea Nitrogen* 5 mg/dL (7-30); Calcium* 8.1 mg/dL (8.4-10.6); Carbon Dioxide* 25 mmol/L (20-32); Glucose* 84 mg/dL (60-115)
[2023-11-04] MEDS: LACTATED RINGERS 1000 ML 1,000 ML 125 ML IV ×2 (07:54→17:50)
[2023-11-04] MEDS: CIPROFLOXACIN 400 MG/200 ML PIGGYBACK 200 MG IVPB ×2 (11:30→23:22)
--- NOTE | 2023-11-04 12:40 | PM.IMPN1 ---
Progress Note: A&P Assessment and plan (1) Colitis: Problem details: CT AP showing Colitis of the descending colon. No mesenteric arterial or venous embolus or thrombus. Continue Cipro and Flagyl, plan to transition to oral prior to discharge Maintenance IVF -will DC with adequate oral intake Clear liquid diet - okay to advance to fulls on 11/03 Bloody stool on 11/02. C diff negative, pathogens pending, FOBT ordered Leukocytosis resolved Status: Acute (2) Melena: Problem details: Stool on 11/02 reported to be bloody. FOBT ordered No regular use of NSAIDs, has declined enoxaparin during hospital course, most recent Cologuard reported as normal Discussed with General surgery, Dr. Clements. As patient is vitally stable, clinically improving, hemoglobin down trended but could be dilutional recommends continuing to monitor with outpatient colonoscopy in 4 weeks. Reassess if new or worsening symptoms. Status: Acute (3) Essential hypertension: Problem details: Dxed 12/05, medication started 12/05, currently on valsartan/HCTZ IV hydralazine for SBP >180 Status: Acute (4) Liver lesion: Problem details: There is a 2 centimeter indeterminate mass in the left lobe of the liver. Recommend MR abdomen without and with IV contrast, liver mass protocol. This can be deferred until after resolution of the patient`s colitis but should be performed soon. Additionally, there is a 1 centimeter hyperdense or hyperenhancing lesion at the gallbladder fundus. Difficult to tell if it is arising from the gallbladder or the immediately adjacent liver. Outpatient follow-up Status: Acute (5) Hyperlipidemia: Problem details: LDL 207 11/28, statin started 11/28, simvastatin increased 12/05 Status: Acute (6) Hypokalemia: Problem details: Potassium 3.2, will replace with oral supplement, recheck in a.m. Status: Acute Plan Advancing diet as tolerated, IV antibiotics. Possible discharge 1-2 days pending ongoing clinical improvement. Time Spent With Patient Total time spent: Total time spent caring for the patient today was 45 minutes. This includes time spent for the visit reviewing the chart, time spent during the visit, time spent after the visit and documentation and planning in coordination of care. Subjective Date Seen: 11/04/23 Interval history: Patient continues to improve. Pain continues to improve as well. Ambulatory, taking frequent walks in the hallways. Has tolerated popsicles. Broth still makes her nauseous. No worsening of abdominal pain with clears. Did have a bowel movement last night which was reported to be bloody. Denies regular use of NSAIDs. Stopped taking a daily baby aspirin remotely as suggested by PCP. Has declined enoxaparin injections here as she has been mobile. Last colonoscopy was years ago. Most recently completed a Cologuard. Exam Narrative: Exam Narrative: PHYSICAL EXAM General: Pleasant, conversant, NAD Cardiovascular: RRR, S1S2. No pitting edema Pulmonary: CTA bilaterally without rhonchi, rales, expiratory wheezes. No dyspnea on room air Abdominal: Soft, nondistended, NTTP Neurological: Alert, answering questions appropriately, cranial nerves intact, no focal findings Extremities: No gross joint deformity or swelling. AROMI. Neurovascularly intact Skin: Warm, dry. Const: Vital Signs, click to edit/add: Vital Signs - 24 hr 11/03/23 15:30 11/03/23 15:30 11/03/23 19:00 Temperature 97.8 F 97.9 F Pulse Rate [Left P ulse Oximeter] 60 76 78 Respiratory Rate 16 16 16 Blood Pressure [Le ft Arm] 146/73 H 153/79 H Pulse Oximetry 98 96 Oxygen Delivery Me thod Room Air Room Air 11/04/23 00:00 11/04/23 00:00 11/04/23 05:12 Temperature 98.4 F 97.8 F Pulse Rate [Left P ulse Oximeter] 63 63 62 Respiratory Rate 16 16 16 Blood Pressure [Le ft Arm] 139/68 146/76 H Pulse Oximetry 96 [facility] 11/04/23 07:00 11/04/23 07:00 Temperature 97.9 F Pulse Rate [Left P ulse Oximeter] 95 61 Respiratory Rate 18 18 Blood Pressure [Le ft Arm] 141/72 H Pulse Oximetry 95 [facility] Labs Labs: Laboratory Results - last 24 hr 11/03/23 11/04/23 20:03 06:26 WBC 7.12 RBC 3.54 L Hgb 10.7 L Hct 32.1 L MCV 91 MCH 30 MCHC 33 Plt Count 161 Sodium 135 Potassium 3.2 L Chloride 106 Carbon Dioxide 25 Anion Gap 4 L BUN 5 L Creatinine 0.6 Estimated Creat Clear 39.50 Estimated GFR 97 Glucose 84 Calcium 8.1 L Stl C. diff Tox B Gene Negative Stl C. diff [id number] PRESUMPTIVE NEGATIVE
[2023-11-04] MEDS: POTASSIUM CHLORIDE 10 MEQ CAPSULE ER 40 MEQ PO ×2 (14:01→17:49)
--- NOTE | 2023-11-04 15:26 | PC.NURSE ---
End of Shift: Patient pleasant and cooperative, A&O. VSS, afebrile. Patient is on room air. Patient reports slight pain in her abdomen this morning, declined PRN medication. Independent in her room. Tolerating full liquid diet. No BM this shift.
--- NOTE | 2023-11-04 18:09 | PC.NURSE ---
End of Shift([id number]): Patient pleasant and cooperative. Patient vitally stable, lungs clear, BS WNL, IV running LR at 125. Patient rates abdominal pain 1/10, no pain meds given. Patient ambulates independently in the halls. Patient urinating well, no BM, and tolerating full liquid diet.
[2023-11-04] MEDS: SIMVASTATIN 20 MG TABLET PO (20:41)
--- NOTE | 2023-11-04 22:31 | PC.NURSE ---
Nursing Care Hours: 19-2300 Pt this shift calm and cooperative, alert and oriented. No c/o pain. No BM. Tolerating full liquids. C/o metallic taste in mouth and typewriter repairer discussed side effects of Flagyl. Gum and chamomile tea with mint offered. Pt independent in room and mares. Declining SCD. Pt states feeling upset about scan and worried about follow ups.
[2023-11-05] MEDS: LACTATED RINGERS 1000 ML 1,000 ML 125 ML IV (01:59)
[2023-11-05 03:00] VITALS: BP 143/71; PULSE 65; RESP 16; TEMP 36.3; O2SAT 96
[2023-11-05] MEDS: metroNIDAZOLE 500 MG/100 ML PIGGYBACK 100 MG IVPB (04:29)
--- NOTE | 2023-11-05 06:16 | PC.NURSE ---
End of shift [id number]: A&O pleasant and cooperative. VSS. Denies pain. Up at katy to bathroom. VSS, afebrile. No BM this shift. Using call light appropriately.
[2023-11-05 06:36] LABS: Hematocrit 32.9 % (33.0-51.0); Mean Corpuscular HGB Conc 33 gm/dL (32-36); Mean Corpuscular Hemoglobin 30 pg (26-34); Mean Corpuscular Volume 91 fL (80-100); Platelet Count* 189 K/uL (140-440); Red Blood Count 3.62 m/uL (4.00-5.20)
[2023-11-05 06:44] LABS: Slide Review Reflex No
[2023-11-05 06:53] LABS: Chloride* 107 mmol/L (96-114); Potassium* 3.9 mmol/L (3.6-5.1); Sodium* 136 mmol/L (135-149)
[2023-11-05 06:55] LABS: Creatinine* 0.6 mg/dL (0.5-1.5); Estimated Glomerular Filt Rate 97 ml/min
[2023-11-05 06:56] LABS: Anion Gap 6 mEq/L (7-15); Blood Urea Nitrogen* 5 mg/dL (7-30); Calcium* 8.5 mg/dL (8.4-10.6); Carbon Dioxide* 23 mmol/L (20-32); Glucose* 96 mg/dL (60-115)
[2023-11-05 07:00] VITALS: BP 142/76; PULSE 65; RESP 18; TEMP 36.6; O2SAT 97
[2023-11-05] MEDS: POTASSIUM CHLORIDE 10 MEQ CAPSULE ER 40 MEQ PO (07:55)
[2023-11-05 10:45] VITALS: BP 159/77; PULSE 64; RESP 16; TEMP 36.8; O2SAT 100
--- NOTE | 2023-11-05 12:01 | P.DS_ITS ---
DS: Providers Provider Date Seen: 11/05/23 Date of admission: 11/02/23 11:02 Primary care physician: Jayashree Kyle MD Admitting Clinician: Michelet Wright MD Attending Physician on discharge: Nuria Marion [facility] Date of Discharge: 11/05/23 DS: Diagnosis Discharge Diagnosis (1) Colitis: Status: Acute Problem details: CT AP showing Colitis of the descending colon. No mesenteric arterial or venous embolus or thrombus. Patient was initiated on IV Cipro and Flagyl, transition to oral on day of discharge. Advised of no alcohol use while taking oral Flagyl. Diet was successfully advanced from clears to bland without further nausea, vomiting, or increased abdominal pain. She was noted to have 1 stool during her hospital course, this was reported as bloody without increased pain or cramping. C difficile was negative. Remaining pathogen panel is pending at time of discharge. (2) Melena: Status: Acute Problem details: Stool on 11/02 reported to be bloody. FOBT ordered for confirmation, no further stools prior to discharge. The patient denied regular use of NSAIDs, has declined enoxaparin during hospital course, most recent Cologuard reported as normal Discussed with General surgery, Dr. Clements. As patient remained vitally stable, continued to clinically improve, recommends continuing to monitor with outpatient colonoscopy in 4 weeks. Hemoglobin stabilized prior to discharge (13.5-11-10.7-11) (3) Essential hypertension: Status: Acute Problem details: Continued on home dose valsartan/hydrochlorothiazide (4) Liver lesion: Status: Acute Problem details: Incidental finding as noted on CT There is a 2 centimeter indeterminate mass in the left lobe of the liver. Recommend MR abdomen without and with IV contrast, liver mass protocol. This can be deferred until after resolution of the patient`s colitis but should be performed soon. Additionally, there is a 1 centimeter hyperdense or hyperenhancing lesion at the gallbladder fundus. Difficult to tell if it is arising from the gallbladder or the immediately adjacent liver. Will need outpatient follow-up with PCP and further studies (5) Hyperlipidemia: Status: Acute Problem details: Continued on home dose simvastatin (6) Hypokalemia: Status: Acute Problem details: Resolved with oral supplement DS: Summary Hospital Course Hospital Course: [age] year old female past medical history significant for hypertension, hyperlipidemia, osteopenia was admitted to the medical floor for further management acute colitis. Course of care and details as noted above. Patient is discharged to continue on oral Cipro and Flagyl to complete 7 day course for colitis. Advised bland, low-fat diet. Outpatient follow-up with PCP, colonoscopy recommended per General surgery for further investigation melena. Remainder of chronic medical comorbidities were monitored and managed with home medications. Status at Discharge Overall status at discharge: patient is back to baseline Time Spent with Patient Time attestation: Total time spent providing and/or coordinating discharge services: Time spent: Greater than 30 minutes Exam Narrative: Exam Narrative: PHYSICAL EXAM General: Pleasant, conversant, NAD Cardiovascular: RRR Pulmonary: No dyspnea Neurological: Alert, answering questions appropriately Skin: Warm, dry. Const: Vital Signs, click to edit/add: Vital Signs - 24 hr 11/04/23 15:53 11/04/23 15:53 11/04/23 19:00 Temperature 99.2 F 98.1 F Pulse Rate [Left P ulse Oximeter] 64 64 79 Respiratory Rate 12 12 18 Blood Pressure [Le ft Arm] Blood Pressure [Ri ght Arm] 137/69 157/78 H Pulse Oximetry 98 97 Oxygen Delivery Me thod Room Air Room Air 11/04/23 23:20 11/05/23 03:00 11/05/23 07:00 Temperature 97.8 F 97.4 F L Pulse Rate [Left P ulse Oximeter] 62 65 65 Respiratory Rate 16 16 18 Blood Pressure [Le ft Arm] Blood Pressure [Ri ght Arm] 148/76 H 143/71 H Pulse Oximetry 97 96 Oxygen Delivery Me thod Room Air Room Air 11/05/23 07:00 11/05/23 10:45 Temperature 97.8 F 98.2 F Pulse Rate [Left P ulse Oximeter] 65 64 Respiratory Rate 18 16 Blood Pressure [Le ft Arm] 142/76 H Blood Pressure [Ri ght Arm] 159/77 H Pulse Oximetry 97 100 Oxygen Delivery Me thod Room Air Room Air DS: Data Data Completed and Pending Labs on day of discharge: Labs from last 24 hours 11/05/23 06:15 WBC 5.30 RBC 3.62 L Hgb 11.0 L Hct 32.9 L MCV 91 MCH 30 MCHC 33 Plt Count 189 Sodium 136 Potassium 3.9 Chloride 107 Carbon Dioxide 23 Anion Gap 6 L BUN 5 L Creatinine 0.6 Estimated Creat Clear 39.50 Estimated GFR 97 Glucose 96 Calcium 8.5 Preliminary micro results at discharge 11/03/23 20:03 Stool Culture - Preliminary Stool Imaging CT scan - abdomen: Attestation: I have reviewed the pertinent imaging results. Radiologist's impression: CT of the abdomen and pelvis with intravenous contrast. Multiplanar axial, coronal, and sagittal reformats were reconstructed. Contrast: 58 mL Isovue 370. FINDINGS: Lung bases: Small focal area of chronic volume loss in the left lower lobe. There are few round air-filled cysts with thin imperceptible guerrero. No worrisome findings in the lung bases. Liver: The liver is not enlarged or cirrhotic. There is a 2 centimeter indeterminate mass in segment III. There is a smaller indeterminate hypoenhancing lesion further laterally in segment 3 that measures 0.6 centimeters. There is a 2 centimeter lesion in hepatic segment that demonstrates peripheral nodular arterial hyperenhancement is consistent with a benign hemangioma. Patent hepatic vasculature. Gallbladder and bile ducts: There is a 1 centimeter hyperdense versus hyperenhancing mass either immediately adjacent to or in the gallbladder fundus. Gallbladder otherwise appears normal. No bile duct dilation. Pancreas: Normal. Spleen: Normal. Adrenal glands: Normal. Kidneys: Minimal focal right renal scarring/volume loss. No cyst or solid mass. No calculi. No urinary tract dilation. Urinary bladder: Normal. Pelvis: No cyst or mass. Vessels: Heavy atherosclerotic vascular calcifications. The mesenteric vessels appear to be widely patent. Bowel: Thick walled descending colon with bowel wall thickness up to 1 centimeter. There is submucosal edema and mucosal hyperemia. No pneumatosis. No mesenteric or portal venous gas. No free air. Appendix is not definitively seen. No dilated or inflamed appearing small bowel. Normal CT appearance of the stomach. Small stool burden. Lymph nodes: No adenopathy. Peritoneum: No ascites. Abdominal wall: No hernia. Bones: No fractures. No focal worrisome bone lesions. IMPRESSION: 1. Colitis of the descending colon. No mesenteric arterial or venous embolus or thrombus. 2. There is a 1 centimeter hyperdense or hyperenhancing lesion at the gallbladder fundus. Difficult to tell if it is arising from the gallbladder or the immediately adjacent liver. 3. There is a 2 centimeter indeterminate mass in the left lobe of the liver. 4. Recommend MR abdomen without and with IV contrast, liver mass protocol. This can be deferred until after resolution of the patient`s colitis but should be performed soon. Discharge Plan Discharge Disposition: Home, Self-Care Date of Admission: 11/02/23 11:02 Attending Provider on Discharge: Nuria Marion Primary Care Provider: Jayashree Kyle Condition: Improved Anticipated Discharge Date/Time: 11/05/23 10:55 Discharge Medications: New ciprofloxacin HCl 500 mg tablet 500 mg PO BID Qty: 14 0RF metronidazole 500 mg tablet 500 mg PO TID Qty: 21 0RF Rx Instructions: DO NOT DRINK ALCOHOL WHILE TAKING THIS MEDICATION Continued calcium carbonate-vitamin D3 [Calcium 600 + D(3)] 600 mg-5 mcg (200 unit) tablet 1 tab PO DAILY simvastatin 20 mg tablet 20 mg PO HS valsartan-hydrochlorothiazide 80-12.5 mg tablet 1 tab PO DAILY Qty: 90 0RF Discharge Orders: Discharge Order (Routine); Ordered 11/05/23 Ordered By: Nuria Marion Patient Education: Ciprofloxacin (By mouth), Metronidazole (By mouth), Colitis (ED) Additional Instructions: Finish 7 days oral antibiotics for colitis. Do not drink alcohol while taking flagyl. Blood noted in stool. Outpatient follow up with PCP, colonoscopy recommended in 4 weeks. There is a 2 centimeter indeterminate mass in the left lobe of the liver. Recommend MR abdomen without and with IV contrast, liver mass protocol. This can be deferred until after resolution of the patient`s colitis but should be performed soon. Activity Level: Activity as Tolerated Discharge Diet: Low Fat/Low Cholesterol Follow Up Appointments: Jayashree Kyle MD [Primary Care Provider] - 11/10/23 2:15 pm ([facility] for follow up, colitis. Will need outpatient study liver lesion. Outpatient colonoscopy for bloody stools) Forms: [facility] Info Instructions
--- NOTE | 2023-11-05 12:16 | PC.NURSE ---
Nursing discharge note: Pt is A&O, afebrile and VSS on day of discharge. She is independent & has been frequent on walking through the halls. Pt denies any pain, nausea or dizziness. PIV in left wrist discontinued, catheter intact. She has not had a BM today. Pt took a shower after breakfast. Tolerated coffee without nausea but she didn?t eat her yogurt d/t the ?metallic taste? in her mouth from the IV abx. Discharge instructions were reviewed with patient and her who both verbalized understanding. She discharged home via ambulatory accompanied by her at 1140. ?
[2023-11-05 20:28] LABS: Adenovirus PCR Not Detected; Astrovirus PCR Not Detected; Campylobacter PCR Not Detected; Cryptosporidium PCR Not Detected; Cyclospora cayetanensis PCR Not Detected; Entamoeba histolytica PCR Not Detected; Enteroaggregative E coli PCR Detected; Enteropathogenic E coli PCR Not Detected; Enterotoxigenic E coli PCR Not Detected; Giardia lamblia PCR Not Detected; Norovirus Gi/GII PCR Not Detected; Plesiomonas shig PCR Not Detected; Rotavirus A PCR Not Detected; Salmonella PCR Not Detected; Sapovirus PCR Not Detected; Shiga toxin E coli PCR Not Detected; Shigella/Enteroinvasive E coli Not Detected; Vibrio PCR Not Detected; Vibrio cholerae PCR Not Detected; Yersinia enterocolitica PCR Not Detected
== END 2023-11-05 11:40 | disposition home or self-care (01) | DRG 392 ==
LOC: ED 07:57 → MEDSURG 09:30
PROVIDERS: Physician Assistant; Admitting Provider Hospitalist; Emergency Provider Internal Medicine; PCP Internal Medicine; Visit Provider Hospitalist
DX: K52.9 Noninfective gastroenteritis and colitis, unspecified (principal); K92.1 Melena; I10 Essential (primary) hypertension; K76.9 Liver disease, unspecified; K82.9 Disease of gallbladder, unspecified; E78.5 Hyperlipidemia, unspecified; E87.6 Hypokalemia
CPT/HCPCS: 36415; 74177; 80048; 80053; 81001; 81003; 82150; 82270; 85025; 85027; 87045; 87046; 87077; 87086; 87427; 87493; 87505; 94761; 99283; 99285; A9270; J0744; J1170; J1836; J2270; J2405; J7120; Q9967

== ENCOUNTER 2023-11-19 09:14 | Emergency (ER) | payer MEDICARE, BC, SELFPAY ==
--- NOTE | 2023-11-19 09:23 | ED_ITS ---
HPI - General Adult General Date Seen: 11/19/23 Chief complaint: Nausea/Vomiting Stated complaint: Cant keep food down Time Seen by Provider: 11/19/23 09:22 History of Present Illness HPI narrative: 73-year-old female with a history of hypertension ( valsartan and hydrochlorothiazide), hyperlipidemia, history of colitis , previous appendectomy, in the ER 11/02/2023 for nausea, vomiting, diarrhea. Left lower quadrant abdominal pain. CT scan showed colitis of her descending colon. No mesenteric arterial or venous embolism or thrombus. C diff testing was negative. Stool culture was negative for Salmonella, Shigella, Campylobacter, E coli, vibrio, Aeromonas, Plesiomona. Put on Cipro and Flagyl and hospitalized. her symptoms improved in the hospital and discharged home on Cipro and Flagyl. patient says she completed her outpatient course of antibiotics. She did have side effects from them including nausea and a metallic taste in her mouth. She completed the course until December 08. She had been doing well for about a week or so and then developed symptoms again 2 days ago on Friday. She began to feel unwell with some abdominal cramping and developed diarrhea. She has had frequent episodes of watery ( nonbloody, non black ) diarrhea since Friday. No nausea or vomiting. No fever or chills. She is having some significant pain and bloating in her left lower abdomen but not as severe as when she was hospitalized a couple of weeks ago. She has been trying to adjust her diet to go to light foods try to slow down the diarrhea but it is not helping. She is scheduled to have a Follow-up colonoscopy by 1 of the surgeons here in [place] on the . no recent travel. No suspicious foods. No clear source for an infection Related Data Home Medications ?Medication ?Instructions ?Recorded ?Confirmed calcium carbonate 600 mg-vitamin 1 tab PO DAILY 11/02/23 11/10/23 D3 5 mcg (200 unit) tablet (Calcium 600 + D(3)) simvastatin 20 mg tablet 20 mg PO HS 11/02/23 11/10/23 Previous Rx's ?Medication ?Instructions ?Recorded ciprofloxacin HCl 500 mg tablet 500 mg PO BID #14 tabs 11/05/23 metronidazole 500 mg tablet 500 mg PO TID #21 tabs 11/05/23 lorazepam 0.5 mg tablet 0.5 mg PO QDAY PRN anxiety #1 tab 11/10/23 peg 3350-electrolytes 236 240 ml PO ONCE #4,000 mL 11/11/23 gram-22.74 gram-6.74 gram-5.86 gram solution (Golytely) valsartan 80 1 tab PO DAILY #90 tabs 11/11/23 mg-hydrochlorothiazide 12.5 mg tablet prednisone 20 mg tablet 40 mg (2 x 20 mg) PO DAILY #14 tabs 11/19/23 Allergies Allergy/AdvReac Type Severity Reaction Status Date / Time No Known Allergies Allergy Verified 11/10/23 14:15 [facility] Surgical History History of cataract surgery ?Z98.49 - Cataract extraction status, unspecified eye (ICD-10) S/P thyroid biopsy ?Z98.890 - Other specified postprocedural states (ICD-10) History of repair of rectocele ?Z98.890 - Other specified postprocedural states (ICD-10) History of vitrectomy (2018) ?Z98.890 - Other specified postprocedural states (ICD-10) History of tonsillectomy (12/05/10) ?Z90.89 - Acquired absence of other organs (ICD-10) History of left inguinal hernia repair (01/06/12) ?Z98.890 - Other specified postprocedural states (ICD-10) ?Z87.19 - Personal history of other diseases of the digestive system (ICD-10) History of section (12/05/10) ?Z98.891 - History of uterine scar from previous surgery (ICD-10) History of appendectomy (12/05/10) ?Z90.49 - Acquired absence of other specified parts of digestive tract (ICD- 10) Social History What is your current living situation?: I presently have a place to live Problems where you live: no known problems Problems where you live details: N/A In the past 12 months, utilities in danger of being shut off: no In past 12 months, lack of transportation kept you from medical appts, meetings, work, or getting things needed for daily living: no In the past 12 mos, have been you worried that your food would run out before you had money to buy more?: never true In the past 12 mos, the food you bought just didn't last and you didn't have money to buy more?: never true Highest level of school completed/degree received: Master's degree Smoking Status: Never smoker How often do you have a drink containing alcohol: 2-4 times a month Alcohol type: wine How many standard drinks containing alcohol do you have on a typical day: 1 or 2 How often do you have six or more drinks on one occasion: Never AUDIT-C Alcohol total score: 2 Non-prescribed substance use: denies use Caffeine: Yes How often does anyone, including family, friends and others, physically hurt you : never How often does anyone, including family, friends and others, insult or talk down to you: never How often does anyone, including family, friends and others, threaten you with harm: never How often does anyone, including family, friends and others, scream or curse at you: never Little interest or pleasure in doing things: not at all Feeling down, depressed, or hopeless: not at all service: No Exam Narrative: Exam Narrative: Constitutional: Appears well-developed and well-nourished. Alert. Conversant. Non toxic. HENT: Head: Atraumatic. Nose: Nose normal. Mouth/Throat: Oral mucosa is clear and moist. no trismus. Pharynx normal Eyes: Conjunctivae normal. EOM normal. Pupils equal, round, and reactive to light. No scleral icterus. Neck: Normal range of motion. Neck supple. No tracheal deviation present. Cardiovascular: Normal rate, regular rhythm. No gallop. No friction rub. No murmur heard. Symmetric radial artery pulses Pulmonary/Chest: Effort normal. No stridor. No respiratory distress. No wheezes. No rales. No rhonchi . Abdominal: Soft. Bowel sounds normal. No distension. No mass. left lower quadrant and suprapubic and left mid abdominal tenderness. No rebound. No guarding. no CVA tenderness. Musculoskeletal: RUE: Normal range of motion. No tenderness. No deformity LUE: Normal range of motion. No tenderness. No deformity RLE: Normal range of motion. No edema. No tenderness. No deformity LLE: Normal range of motion. No edema. No tenderness. No deformity Neurological: Alert and oriented to person, place, and time. Normal strength. CN II-VII intact. No sensory deficit. GCS eye subscore is 4. GCS verbal subscore is 5. GCS motor subscore is 6. Normal coordination Skin: Skin is warm and dry. No rash noted. No pallor. Normal capillary refill. Psychiatric: Normal mood. Normal affect. Const: Vital Signs, click to edit/add: Vital Signs - 24 hr 11/19/23 09:24 11/19/23 13:22 Temperature 97.0 F L Pulse Rate [Right Pulse Oximeter] 73 65 Respiratory Rate 18 18 Blood Pressure [Ri t Upper Arm] 145/75 H 148/65 H Pulse Oximetry 98 99 Oxygen Delivery Me thod Room Air Course Course ED Course: Nurses report that the patient was in the bathroom to have another episode of diarrhea. When the nurse checked the hat there was a small marble-sized lump of glucose but no other watery or formed stool. No blood. Vital Signs Vital signs: Initial Vital Signs Temperature 97.0 F L 11/19/23 09:24 Temperature Source Temporal Artery Scan 11/19/23 09:24 Pulse Rate 73 11/19/23 09:24 Respiratory Rate 18 11/19/23 09:24 Blood Pressure 145/75 H 11/19/23 09:24 Blood Pressure Mean 98 11/19/23 09:24 Blood Pressure Position Sitting 11/19/23 09:24 Pulse Oximetry 98 11/19/23 09:24 Oxygen Delivery Method Room Air 11/19/23 09:24 Vital Signs Temperature 97.0 F L 11/19/23 09:24 Pulse Rate 73 11/19/23 09:24 Respiratory Rate 18 11/19/23 09:24 Blood Pressure 145/75 H 11/19/23 09:24 Pulse Oximetry 98 11/19/23 09:24 Oxygen Delivery Method Room Air 11/19/23 09:24 Temperature 97.0 F L 11/19/23 09:24 Pulse Rate 65 11/19/23 13:22 Respiratory Rate 18 11/19/23 13:22 Blood Pressure 148/65 H 11/19/23 13:22 Pulse Oximetry 99 11/19/23 13:22 Oxygen Delivery Method Room Air 11/19/23 09:24 Medications Administered Medications: Discontinued Medications Generic Name Dose Route Start Last Admin Trade Name Freq PRN Reason Stop Dose Admin Sodium Chloride 1,000 mls @ 1,000 mls/hr 11/19/23 09:45 11/19/23 09:58 0.9 % Sodium Chloride 1000 Ml IV 11/19/23 10:44 1,000 mls/hr .Q1H SASHA Administration Medical Decision Making MDM Narrative Medical decision making narrative: This is a very pleasant 73-year-old female presenting to the ER today with recurrent symptoms of diarrhea and lower abdominal pain. She had been seen a couple weeks ago and diagnosed with colitis. Stool cultures and C diff test were negative but symptoms did get better after several days of antibiotic therapy. Symptoms are now recurred. Laboratory workup today is reassuring. Hemoglobin and white count are normal. The patient is hemodynamically stable and nontoxic. Venous lactic acid is normal. Repeat CT scan is obtained and does show evidence for recurrent or ongoing colitis. Interestingly the segment that had been inflamed for previously now looks better but she has inflammation above and below it involving the sigmoid and transverse colon. She was able to give a small mucousy stool here. C diff and stool culture are recent just to confirm absence of infection. However with negative recent culture results, would favor possible autoimmune colitis over infectious. On previous CT imaging vasculature was noted to be patent. Patchy distribution colitis today would argue against ischemia. At this point reasonable clinical could judgment suggest the patient is safe for outpatient management. She and her are very pleased with this and they prefer to go home. Will start the patient on prednisone for possible autoimmune colitis. Discussed with the patient that autoimmune is not a confirmed diagnosis yet and that she will need further workup. Recommendation for surgery is for to have her follow up with primary care in clinic on Friday and have them facilitate referral to GI. We tried to discuss with the patient's primary care provider today but she is out of the office. Discussed with her partner, Dr. Leon. He will help follow-up with patient in clinic on Friday. He may also be able to help arrange outpatient colonoscopy. Discussed the tentative plan of care with the patient and she and her are in agreement. Precautions for return to the ER reviewed. Lab Data Labs: Lab Results 11/19/23 Range/Units 09:55 WBC 9.44 (4.50-11.00) K/uL RBC 4.25 (4.00-5.20) m/uL Hgb 12.9 (12.0-16.0) gm/dL Hct 38.2 (33.0-51.0) % MCV 90 (80-100) fL MCH 30 (26-34) pg MCHC 34 (32-36) gm/dL RDW Coeff of Cheryl 13.0 (11.5-15.5) % Plt Count 249 (140-440) K/uL Neut % (Auto) 80.0 H (42.0-72.0) % Lymph % (Auto) 10.8 L (20-44) % [place] % (Auto) 8.6 (0.0-11.0) % Eos % (Auto) 0.4 (0.0-7.0) % Baso % (Auto) 0.1 (0.0-3.0) % Neut # (Auto) 7.60 H (1.7-7.0) K/uL Lymph # (Auto) 1.00 (0.90-2.90) K/uL [place] # (Auto) 0.80 (0.00-0.90) K/UL Eos # (Auto) 0.04 (0.00-0.50) K/uL Baso # (Auto) 0.01 (0.00-0.30) K/uL Abs Immat Gran (auto) 0.01 (0.00-0.30) K/uL Imm/Tot Granulo (auto) 0.1 % Sodium 133 L (135-149) mmol/L Potassium 3.1 L (3.6-5.1) mmol/L Chloride 101 (96-114) mmol/L Carbon Dioxide 23 (20-32) mmol/L Anion Gap 9 (7-15) mEq/L BUN 8 (7-30) mg/dL Creatinine 0.7 (0.5-1.5) mg/dL Estimated Creat Clear 38.94 Estimated GFR 92 ml/min Glucose 108 (60-115) mg/dL Lactate 0.9 (0.5-1.9) mmol/L Calcium 9.0 (8.4-10.6) mg/dL Imaging Data CT scan - abdomen: Attestation: I have reviewed the pertinent imaging results. Radiologist's impression: IMPRESSION: 1. The colitis pattern has globally worsened. The area that was involved previously has improved though the remainder of the colon has worsened. There is no intramural air, free air or collection. There is moderate ascites which is new, presumably reactive to the colitis. 2. Architectural distortion or spiculation at the 3 o`clock position of the left breast. This could be fibrotic or malignant. Follow-up evaluation recommended as appropriate in the nonacute care setting. This area was not specifically imaged on the prior exam. 3. Multiple hepatic lesions as described above probably benign though indeterminate on this exam. As recommended November 02, 2023, follow-up MRI should be considered in the nonacute care setting. 4. Other incidental nonacute appearing findings as above Discharge Plan Discharge Clinical Impression: Colitis Patient Disposition: Home, Self-Care Condition: Stable Instructions: Colitis (ED) Additional Instructions: As we discussed, we do not know the exact cause of your colitis yet. You need further workup. The 1st step is to get follow-up in the primary care clinic. Please call today to arrange an appointment with someone in the clinic on Friday. If you are not able to do be seen in clinic, you can call Dr. Leon on Friday for a phone visit. His number is [phone]. Call him between 9 and 3:00 p.m. on Friday. We will start you on prednisone. Start this today. If you have any worsening pain, fever, bloody stools, weakness, or any problems, come back to the ER right away to be rechecked. Prescriptions: New prednisone 20 mg tablet 40 mg PO DAILY Qty: 14 0RF No Action lorazepam 0.5 mg tablet 0.5 mg PO QDAY PRN (Reason: anxiety) Qty: 1 0RF Rx Instructions: take 1 hour before MRI calcium carbonate-vitamin D3 [Calcium 600 + D(3)] 600 mg-5 mcg (200 unit) tablet 1 tab PO DAILY simvastatin 20 mg tablet 20 mg PO HS ciprofloxacin HCl 500 mg tablet 500 mg PO BID Qty: 14 0RF metronidazole 500 mg tablet 500 mg PO TID Qty: 21 0RF Rx Instructions: DO NOT DRINK ALCOHOL WHILE TAKING THIS MEDICATION valsartan-hydrochlorothiazide 80-12.5 mg tablet 1 tab PO DAILY Qty: 90 0RF peg 3350-electrolytes [Golytely] 236-22.74-6.74 -5.86 gram recon soln 240 ml PO ONCE Qty: 4000 0RF Rx Instructions: until fecal effluent is clear Follow Up/Referrals: Jayashree Kyle MD [Primary Care Provider] - Stand Alone Forms: [facility] Info Instructions
[2023-11-19 09:24] VITALS: BP 145/75; PULSE 73; RESP 18; TEMP 36.1; O2SAT 98; BMI 22.3
--- NOTE | 2023-11-19 09:42 | CRLHL7_ITS ---
For Patients: As a result of the Century Cures Act, medical imaging exams and procedure reports are released immediately into your electronic medical record. You may view this report before your referring provider. If you have questions, please contact your health care provider. INDICATION: Left lower quadrant abdominal pain and diarrhea. Recent history of colitis. COMPARISON: None TECHNIQUE: CT examination of the abdomen and pelvis was performed following the uneventful intravenous administration of 75 cc of Isovue 370. Thin section axial images were obtained from the lung bases through the pubic symphysis. Oral contrast was not administered. Please note that all CT scans at this facility use dose modulation, iterative reconstruction, and/or weight-based dosing when appropriate to reduce radiation dose to as low as reasonably achievable. FINDINGS: LUNG BASES: Linear opacities consistent with atelectasis or scarring.The heart size is normal at the lung bases. There is architectural distortion or spiculation at the 3 o`clock position of the left breast. This could be scarring or neoplastic. Follow-up breast evaluation recommended at a clinically appropriate time. LIVER/BILIARY SYSTEM:There are several lesions identified. There are 2 that have imaging features likely representing a hemangioma. One of the lesions probably represents a cyst. There is also a lesion near the gallbladder fundus which is probably a hepatic lesion (as opposed to a gallbladder fundal lesion) and may represent a hemangioma. Again, an MRI with gadolinium is recommended in the nonacute care setting as noted on the November 02, 2023 exam. These are not acute findings. No evidence of cholecystitis. ADRENALS: Normal KIDNEYS, URETERS and BLADDER:The kidneys appear normal. No visible mass, calculus or hydronephrosis. The ureters and bladder as visualized appear normal. SPLEEN:Normal appearance. PANCREAS: Appears normal. RETROPERITONEUM and MESENTERY: There is no mass, adenopathy or aortic aneurysm. GASTROINTESTINAL SYSTEM: The patient had colitis of the descending colon on the prior study. The colitis in that area has improved. However, there is now a colitis involving the sigmoid, the rectum, the transverse colon, the cecum and ascending colon which is essentially new. No intramural air, free air or collection. A small amount of ascites is noted which is new likely reactive to the colitis. PELVIS: No mass or adenopathy identified. Prominent parametrial vasculature incidentally noted.. OSSEOUS STRUCTURES and ABDOMINAL WALL: There is an age-appropriate appearance of the osseous structures.No significant abdominal wall defect. OTHER: No free fluid or free air. IMPRESSION: 1. The colitis pattern has globally worsened. The area that was involved previously has improved though the remainder of the colon has worsened. There is no intramural air, free air or collection. There is moderate ascites which is new, presumably reactive to the colitis. 2. Architectural distortion or spiculation at the 3 o`clock position of the left breast. This could be fibrotic or malignant. Follow-up evaluation recommended as appropriate in the nonacute care setting. This area was not specifically imaged on the prior exam. 3. Multiple hepatic lesions as described above probably benign though indeterminate on this exam. As recommended November 02, 2023, follow-up MRI should be considered in the nonacute care setting. 4. Other incidental nonacute appearing findings as above Please note that all CT scans at this facility use dose modulation, iterative reconstruction, and/or weight-based dosing when appropriate to reduce radiation dose to as low as reasonably achievable. Dictated by Eric Escalante MD @ 11/19/2023 10:48:59 AM (Electronically Signed)
--- OUTSIDE RECORDS SUMMARY | 2023-11-19 09:56 | XMS_ITS | Clinical Summary ---
Author Organization [employer] [facility] Address [place], [place] [address] Care Team Providers Care Brickmason Helper Name Role Phone Unavailable Primary Care Provider Unavailabl e Allergies No known active allergies Medications Medication Sig Dispensed Refills Start Date End Date Status simvastatin (ZOCOR) 10 mg tablet Take 10 mg by mouth at bedtime. Active prednisoLONE acetate 1% ophthalmic (ECONOPRED PLUS, PRED FORTE, OMNIPRED) suspension Place 1 Drop into right eye 4 times daily 10 mL 2 01/12/2014 Active ketorolac 0.5 % ophthalmic (ACULAR) solution Place 1 Drop into right eye 4 times daily 10 mL 2 01/12/2014 Active acetaminophen (TYLENOL) 325 mg tablet Take 2 tablets by mouth every 4 hours if needed. Maximum dose of acetaminophen is 4000 mg from all sources in 24 hours. 0 01/12/2014 Active ibuprofen (ADVIL; MOTRIN) 400 mg tablet Take 1 tablet by mouth every 6 hours if needed for Pain. Take with food. Over the counter 0 01/12/2014 Active Immunizations Name Administration Dates Next Due Tdap 02/28/2014,10/30/2006 Zoster (Zostavax-ZVL, live) 12/04/2012 Family History Medical History Relation Name Comments Alcohol/Drug Brother Heart Disease Brother rheumatic hear t, CD alcohol Cancer-breast Maternal Aunt Heart Disease Maternal Grandmother Other Maternal Grandmother Heart Disease Mother Relation Name Status Comments Brother Maternal Aunt Maternal Grandmother Mother Social History Tobacco Use Types Packs/Day Years Used Date Smoking Tobacco: Former Smokeless Tobacco: Never Alcohol Use Standard Drinks/Week Comments Yes 0 (1 standard drink = 0.6 oz pur e alcohol) wine with dinner Sex and Gender Information Value Date Recorded Sex Assigned at Not on file Gender Identity Not on file Sexual Orientation Not on file Obstetrics History Para Term AB IAB SAB Ectopic Multiple Livin g Live Births 2 2 Date Outcome GA Total Labor Labor/2nd/3rd Weight Sex Type Anes PTL Shiloh A1 A5 Name Clin Last Filed Vital Signs Vital Sign Reading Time Taken Comments Blood Pressure 149/84 01/12/2014 2:00 PM CDT Pulse 54 01/12/2014 2:00 PM CDT Temperature 36.4 ??C (97.5 ??F) 01/12/2014 11:00 AM C DT Respiratory Rate 16 01/12/2014 2:00 PM CDT Oxygen Saturation 100% 01/12/2014 2:00 PM CDT Inhaled Oxygen Concentration - - Weight 58.1 kg (128 lb) 01/10/2014 5:09 AM CDT Height 154.9 cm (5' 0.98) 01/10/2014 5:09 AM CD T Body Mass Index 24.2 01/10/2014 5:09 AM CDT Plan of Treatment Health Maintenance Due Date Last Done Comments Depression screening for age 12+ 1964 BMI (ht and wt on same day) for age 18+ 1970 Hepatitis C screening for age 18-79 1970 Colonoscopy through age 75 1997 Lipids for age 45-75 12/31/2012 01/01/2008 Zoster (shingles) series for age 50+ (2 of 3) 01/29/2013 12/04/2012 Mammogram for age 45-75 03/27/2016 03/27/20 15, 01/01/2008, 10/30/2006 DEXA/DXA scan for age 65+ 2017 Pneumococcal series for age 65+ (1 of 1 - PCV) 2017 COVID-19 vaccine series (1 - season) 2023 Influenza for age 65+ 01/18/2024 Tetanus booster 02/29/2024 02/28/2014, 10/30/2006 Tdap Completed 02/28/2014, 10/30/2006 Procedures Procedure Name Priority Date/Time Associated Diagnosis Comments SCAN-MAMMOGRAPHY REPORT 03/27/2015 12:00 AM PROTOTYPE ASSEMBLER ELECTRONICS LIPID PANEL Routine 01/01/2008 12:54 PM CDT Lipid Screening from Last 3 Months or Most Recently Relevant to Health Maintenance Results * SCAN-MAMMOGRAPHY REPORT (03/27/2015 12:00 AM PROTOTYPE ASSEMBLER ELECTRONICS) Anatomical Region Laterality Modality Other Scanner OTHER * (ABNORMAL) LIPID PANEL (01/01/2008 12:54 PM CDT) CHOLESTEROL,TOTAL 277(H) 110 - 199 mg/dL [facility] TRIGLYCERIDES 73 <150 mg/dL [facility] HDL CHOLESTEROL 59 >40 mg/dL [facility] CHOL/HDL RATIO 4.69(H) <4.51 [facility] LDL CHOLESTEROL 203(H) <131 mg/dL [facility] PATIENT STATUS Fasting [facility] Blood specimen (specimen) BLOOD SPECIMEN / Unknown 01/01/2008 12:54 PM CDT 01/01/2008 12:53 PM CDT Joslyn Tee AUTO PARKER CHEMISTRY [facility] [address] [place] [address] from Last 3 Months or Most Recently Relevant to Health Maintenance Advance Directives * Full Code (Latest Code Status on File) Date Activated Date Inactivated Comments 01/12/2014 10:52 AM 01/12/2014 4:19 PM
[2023-11-19 09:58] LABS: Lactate* 0.9 mmol/L (0.5-1.9)
[2023-11-19] MEDS: 0.9 % SODIUM CHLORIDE 1000 ml 1,000 ML IV (09:58)
[2023-11-19 09:59] LABS: Basophils Absolute Auto 0.01 K/uL (0.00-0.30); Basophils Percent Auto 0.1 % (0.0-3.0); Eosinophils Absolute Auto 0.04 K/uL (0.00-0.50); Eosinophils Percent Auto 0.4 % (0.0-7.0); Hematocrit 38.2 % (33.0-51.0); Hemoglobin* 12.9 gm/dL (12.0-16.0); Immature Granulocytes Abs Auto 0.01 K/uL (0.00-0.30); Immature Granulocytes Pct Auto 0.1 %; Lymphocytes Percent Auto 10.8 % (20-44); Mean Corpuscular HGB Conc 34 gm/dL (32-36); Mean Corpuscular Hemoglobin 30 pg (26-34); Mean Corpuscular Volume 90 fL (80-100); Monocytes Percent Auto 8.6 % (0.0-11.0); Platelet Count* 249 K/uL (140-440); Red Blood Count 4.25 m/uL (4.00-5.20); White Blood Count* 9.44 K/uL (4.50-11.00)
[2023-11-19 10:01] LABS: Slide Review Reflex No
[2023-11-19 10:19] LABS: Chloride* 101 mmol/L (96-114); Potassium* 3.1 mmol/L (3.6-5.1); Sodium* 133 mmol/L (135-149)
[2023-11-19 10:21] LABS: Creatinine* 0.7 mg/dL (0.5-1.5); Est. Creatinine Clearance* 38.94; Estimated Glomerular Filt Rate 92 ml/min
[2023-11-19 10:22] LABS: Anion Gap 9 mEq/L (7-15); Blood Urea Nitrogen* 8 mg/dL (7-30); Carbon Dioxide* 23 mmol/L (20-32); Glucose* 108 mg/dL (60-115)
[2023-11-19 13:22] VITALS: BP 148/65; PULSE 65; RESP 18; O2SAT 99
== END 2023-11-19 13:23 | disposition home or self-care (01) ==
PROVIDERS: Emergency Provider Emergency Medicine; PCP Internal Medicine
DX: K52.9 Noninfective gastroenteritis and colitis, unspecified (principal)
CPT/HCPCS: 36415; 74177; 80048; 83605; 85025; 87045; 87046; 87427; 87493; 99283; 99284; J7030; Q9967

== ENCOUNTER 2023-12-02 10:20 | Outpatient (CLI) | payer MEDICARE, BC, SELFPAY ==
--- OUTSIDE RECORDS SUMMARY | 2023-12-02 10:23 | XMS_ITS | Clinical Summary ---
Author Organization [email or web address] [facility] Address [place], [place] [address] Care Team Providers Care Machine Clerical Verifier Name Role Phone Unavailable Primary Care Provider [...] Diagnosis Comments SCAN-MAMMOGRAPHY REPORT 03/27/2015 12:00 AM TIE TAPE MACHINE OPERATOR LIPID PANEL Routine 01/01/2008 12:54 PM CDT Lipid Screening from Last 3 Months or Most Recently Relevant to Health Maintenance Results * SCAN-MAMMOGRAPHY REPORT (03/27/2015 12:00 AM TIE TAPE MACHINE OPERATOR) Anatomical Region Laterality Modality Other Scanner OTHER * (ABNORMAL) LIPID PANEL (01/01/2008 12:54 PM CDT) CHOLESTEROL,TOTAL 277(H) 110 - 199 mg/dL [facility] TRIGLYCERIDES 73 <150 mg/dL [facility] HDL CHOLESTEROL 59 >40 mg/dL [facility] CHOL/HDL RATIO 4.69(H) <4.51 [facility] LDL CHOLESTEROL 203(H) <131 mg/dL [facility] PATIENT STATUS Fasting [facility] Blood specimen (specimen) BLOOD SPECIMEN / Unknown 01/01/2008 12:54 PM CDT 01/01/2008 12:53 PM CDT Joslyn Tee HEALTHCARE FINANCIAL ANALYST CHEMISTRY [facility] [address] [place] [address] from Last 3 Months or Most Recently Relevant to Health Maintenance Advance Directives * Full Code (Latest Code Status on File) Date Activated Date Inactivated Comments 01/12/2014 10:52 AM 01/12/2014 4:19 PM
--- NOTE | 2023-12-02 10:53 | P.ANES_ITS ---
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
--- NOTE | 2023-12-02 12:33 | W.ANESCHARGE ---
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
== END 2023-12-02 10:21 | disposition home or self-care (01) ==
LOC: OP CLINIC 10:21
PROVIDERS: PCP Internal Medicine; Visit Provider Surgery
DX: K62.89 Other specified diseases of anus and rectum (principal); K62.1 Rectal polyp
CPT/HCPCS: 00811; 45380; 45385; 88305; 99100; J2704

== ENCOUNTER 2023-12-05 10:33 | Outpatient (CLI) | payer MEDICARE, BC, SELFPAY ==
--- OUTSIDE RECORDS SUMMARY | 2023-12-05 10:34 | XMS_ITS | Clinical Summary ---
Author Organization [employer] [facility] Address [place], [place] [address] Care Team Providers Care Melt Room Operator Name Role Phone Unavailable Primary Care Provider [...] food. Over the counter 0 01/12/2014 Active Encounters Date Type Department Care Team Description 12/02/[address] [facility] [phone] Hyun Elliott MD from Last 3 Months Immunizations Name Administration Dates Next Due Tdap [...] 1 - PCV) 2017 COVID-19 vaccine series ( - 2022- season) 2023 Influenza for age 65+ 01/18/2024 Tetanus booster 02/29/2024 02/28/2014, 10/30/2006 Tdap Completed 02/28/2014, 10/30/2006 Procedures Procedure Name Priority Date/Time Associated Diagnosis Comments PATH TISSUE EXAM Routine 12/02/2023 11:1 0 AM CDT SCAN-MAMMOGRAPHY REPORT 03/27/2015 12:00 AM FABRICATOR INDUSTRIAL FURNACE LIPID PANEL Routine 01/01/2008 12:54 PM CDT Lipid Screening from Last 3 Months or Most Recently Relevant to Health Maintenance Results * PATH TISSUE EXAM (12/02/2023 11:10 AM CDT) Case Report Pathology Report ?Case: [id number] ? Authorizing Provider: ??Hyun Elliott MD ??Collected: ? 12/02/2023 1110 ? Ordering Location: ? [facility] ?Received: ?12/03/2023 0853 ? Pathologist: ? Viet Aguirre MD ? Specimens: ?? A) - Colon Biopsy, random colon ? B) - Rectal Biopsy ? C) - Rectum, polypectomy ? 12/04/2023 5:28 PM CDT [facility] [employer] [facility] Final Diagnosis A) COLON, RANDOM, BIOPSY: 1. Focal active colitis (see comment) 2. Negative for microscopic and chronic colitis B) RECTUM, BIOPSY: 1. Normal rectal mucosa 2. Negative for proctitis C) RECTUM, POLYPECTOMY: 1. Hyperplastic polyp 12/04/2023 5:28 PM CDT [facility] Comment A) Given the patient's colitis symptoms this pattern of inflammation may represent a mild/resolving acute self-limited type colitis of infectious etiology, medication-rela andreea injury (typically NSAID's), or less likely Crohn's colitis. Part A of this case reviewed with Dr. Marixa Reed. 12/04/2023 5:28 PM T [facility] Clinical Information Ms. Elizalde is a 73 y.o. with suspected colitis. Colonoscopy findings: Erythematous mucosa in the rectum. Single rectal polyp, completely removed. 12/04/2023 5:28 PM T [facility] Gross Description A) Received in formalin are 8 barger mucosal fragments averaging 2 mm in greatest dimension, which are entirely submitted in one cassette. It is labeled with the patient's name and designated random colon biopsies. B) Received in formalin are 3 barger mucosal fragments averaging 3 mm in greatest dimension, which are entirely submitted in one cassette. It is labeled with the patient's name and designated rectal biopsy. C) Received in formalin are 4 barger mucosal fragments ranging from 1 mm to 5 mm in greatest dimension, which are entirely submitted in one cassette. It is labeled with the patient's name and designated rectum polypectomy. Brandon Zeng 12/03/2023 10:18 AM 12/04/2023 5:28 PM CDT [facility] Microscopic Description The final diagnosis is based on microscopic examination of appropriate sections of all specimens. 12/04/2023 5:28 PM CDT [facility] Additional Information Interpreted at [facility] - [address] [facility] [address], [place] [address] 12/04/2023 5:28 PM CDT [facility] Other (Colon Biopsy) 12/02/2023 11:10 AM CDT 12/03/2023 8:53 AM CDT Specimen (specimen) (Rectal Biopsy) 12/02/2023 11:10 AM CDT 12/03/2023 8:53 AM CDT Specimen (specimen) (Rectum) 12/02/2023 11:10 AM CDT 12/03/2023 8:53 AM CDT Hyun Elliott MD PATHOLOGY/CYTOLO GY Performing Organization Address [facility]/ZIP Co de Phone Number [facility] [address] [place] [address], * SCAN-MAMMOGRAPHY REPORT (03/27/2015 12:00 AM FABRICATOR INDUSTRIAL FURNACE) Anatomical Region Laterality Modality Other Scanner OTHER * (ABNORMAL) LIPID PANEL (01/01/2008 12:54 PM CDT) CHOLESTEROL,TOTAL 277(H) 110 - 199 mg/dL [facility] TRIGLYCERIDES 73 <150 mg/dL [facility] HDL CHOLESTEROL 59 >40 mg/dL [facility] CHOL/HDL RATIO 4.69(H) <4.51 [facility] LDL CHOLESTEROL 203(H) <131 mg/dL [facility] PATIENT STATUS Fasting [facility] Blood specimen (specimen) BLOOD SPECIMEN / Unknown 01/01/2008 12:54 PM CDT 01/01/2008 12:53 PM CDT Joslyn Tee NP CHEMISTRY Performing Organization Address City/[facility]/ZIP Co de Phone Number [facility] [address] [place] [id number] from Last 3 Months or Most Recently Relevant to Health Maintenance Advance Directives * Full Code (Latest Code Status on File) Date Activated Date Inactivated Comments 01/12/2014 10:52 AM 01/12/2014 4:19 PM
--- NOTE | 2023-12-05 10:45 | CRLHL7_ITS ---
For Patients: As a result of the Cures Act, medical imaging exams and procedure reports are released immediately into your electronic medical record. You may view this report before your referring provider. If you have questions, please contact your health care provider. DIGITAL DIAGNOSTIC BILATERAL MAMMOGRAM USING TOMOSYNTHESIS AND COMPUTER-AIDED DETECTION LEFT BREAST ULTRASOUND CLINICAL HISTORY: LEFT breast mass/asymmetry on recent CT. COMPARISON: Mammogram 02/12/2023, 02/11/2022 and 01/16/2021. CT abdomen 11/19/2023 TECHNIQUE: Digital BILATERAL mammogram in four projections with computer-aided detection. Tomosynthesis was used in this interpretation. Real-time ultrasound imaging of LEFT breast with imaging documentation. BREAST COMPOSITION: There are areas of scattered fibroglandular density. FINDINGS: 3D CC/MLO BILATERAL mammogram images submitted. No suspicious masses or architectural distortion. No adenopathy. Benign vascular calcifications. Targeted LEFT breast ultrasound performed in the upper outer quadrant 2 o`clock 5 cm from the nipple extending to 3 o`clock. Normal fibroglandular tissue is present. No suspicious findings. IMPRESSION: Normal breast tissue. No evidence of malignancy. RECOMMENDATIONS: Annual BILATERAL screening mammography. Results and recommendations discussed with the patient. BI-RADS Category 2: Benign A lay language report of this examination will be provided to the patient. Dictated by Demetrius Butts MD @ 12/05/2023 11:33:30 AM j/Dictated by: Demetrius Butts MD @ 12/05/2023 12:29:00 PM (Electronically Signed)
--- NOTE | 2023-12-05 11:15 | CRLHL7_ITS ---
For Patients: As a result of the Cures Act, medical imaging exams and procedure reports are released immediately into your electronic medical record. You may view this report before your referring provider. If you have questions, please contact your health care provider. PLEASE SEE DIGITAL DIAGNOSTIC BILATERAL MAMMOGRAM PERFORMED SAME DAY CRL:pat stewart/Dictated by: Demetrius Butts MD @ 12/05/2023 11:33:00 AM (Electronically Signed)
== END 2023-12-05 10:34 | disposition home or self-care (01) ==
LOC: MAMMO 10:33
PROVIDERS: PCP Internal Medicine; Visit Provider Internal Medicine
DX: N63.21 Unspecified lump in the left breast, upper outer quadrant (principal)
CPT/HCPCS: 76642; 77066; G0279

== ENCOUNTER 2023-12-10 08:04 | Outpatient (CLI) | payer MEDICARE, BC, SELFPAY ==
--- NOTE | 2023-12-10 08:15 | CRLHL7_ITS ---
For Patients: As a result of the Century Cures Act, medical imaging exams and procedure reports are released immediately into your electronic medical record. You may view this report before your referring provider. If you have questions, please contact your health care provider. INDICATION: : Liver lesion. Rule out cancer. TECHNIQUE: Multiplanar imaging of the abdomen was performed without and with 20 cc of Dotarem contrast material IV. COMPARISON: None. FINDINGS: The liver is normal in size and shape. In liver segment 3 is a typical 2.5 x 2.1 x 2.1 cm hemangioma. In the lateral aspect of segment 6 is a typical 2.3 x 2.3 x 1.6 cm hemangioma. An additional typical hemangioma measuring 1.8 x 1.4 x 1.3 cm is demonstrated in segment 5. A flash-filling 0.6 hemangioma is demonstrated in segment 8 and a flash-filling 0.5 cm hemangioma is demonstrated in segment 5. A 0.5 cm cyst is noted in segment 3 as well as a 0.3 cm cyst in segment 8. The bile ducts are normal in caliber. The spleen, adrenal glands and pancreas are within normal limits. The kidneys are unremarkable except for a tiny right renal parenchymal cyst. No lymphadenopathy is apparent. No intrinsic bowel abnormality is evident. No free fluid is demonstrated. IMPRESSION: Hepatic hemangiomas and tiny liver cysts, as above. No suspicious liver lesion evident. Dictated by Meliton Crum MD @ 12/10/2023 8:07:16 PM (Electronically Signed)
== END 2023-12-10 08:05 | disposition home or self-care (01) ==
LOC: MRI 08:05
PROVIDERS: PCP Internal Medicine; Visit Provider Internal Medicine
DX: K76.9 Liver disease, unspecified (principal); K76.89 Other specified diseases of liver
CPT/HCPCS: 74183; A9575

== ENCOUNTER 2024-02-03 09:19 | Outpatient (CLI) | payer MEDICARE, BC, SELFPAY ==
--- OUTSIDE RECORDS SUMMARY | 2024-02-03 09:25 | XMS_ITS | Clinical Summary ---
Author Organization [facility] Address [place], [place] [address] Care Team Providers Care Mineral Surveyor Name Role Phone Unavailable Primary Care Provider [...] Encounters Date Type Department Care Team Description 12/12/2023 Telephone [facility] [address] [place] [address] Keaton Billingsley MD Referral 12/10/2023 Orders Only [facility] Scanner 1 scan: (1-Ord) [place], MR ABD WO and W CONTRAST, 12/10/2023 12/02/2023 Orders Only [facility] Scanner 1 scan: (1-Ord) [facility] 12/02/2023 Lab Requisition [facility] [phone] Hyun Elliott MD from Last 3 Months [...] Hepatitis C screening for age 18-79 1970 Lipids for age 45-75 12/31/2012 01/01/2008 Zoster (shingles) series for age 50+ (2 of 3) 01/29/2013 12/04/2012 Mammogram for age 45-75 03/27/2016 03/27/20 15, 01/01/2008, 10/30/2006 DEXA/DXA scan for age 65+ 2017 Pneumococcal series for age 65+ (1 of 1 - PCV) 2017 COVID-19 vaccine series ( season) 2024 Influenza for age 65+ 01/18/2024 Tetanus booster 02/29/2024 02/28/2014, 10/30/2006 Colonoscopy through age 75 12/01/2033 12/02/2023 Tdap Completed 02/28/2014, 10/30/2006 Procedures Procedure Name Priority Date/Time Associated Diagnosis Comments SCAN-MRI INTERPRETATION 12/10/19 12:00 AM CDT LAB TRACKING EVENT Routine 12/02/2023 11 :10 AM CDT PATH TISSUE EXAM Routine 12/02/2023 11:1 0 AM CDT SCAN-COLONOSCOPY 12/02/2023 12:0 0 AM CDT SCAN-MAMMOGRAPHY REPORT 03/27/20 12:00 AM HEMMER LOCKSTITCH LIPID PANEL Routine 01/01/2008 12:54 PM CDT Lipid Screening from Last 3 Months or Most Recently Relevant to Health Maintenance Results * SCAN-MRI INTERPRETATION (12/10/2023 12:00 AM CDT) Anatomical Region Laterality Modality Other Scanner OTHER * LAB TRACKING EVENT (12/02/2023 11:10 AM CDT) Other (Other) Client Collect / Unknown 12/02/2023 11:10 AM CDT 12/02/2023 9:16 PM CDT Hyun Elliott MD LAB BILL ONLY [facility] [address] [place] [address], * PATH TISSUE EXAM (12/02/2023 11:10 AM CDT) Case Report Pathology Report ?Case: [id number] ? Authorizing Provider: ??Hyun Elliott MD ??Collected: ? 12/02/2023 1110 ? Ordering Location: ? [facility] ?Received: ?12/03/2023 0853 ? Pathologist: ? Viet Aguirre MD ? Specimens: ?? A) - Colon Biopsy, random colon ? B) - Rectal Biopsy ? C) - Rectum, polypectomy ? 12/04/2023 5:28 PM CDT [facility] Final Diagnosis A) COLON, RANDOM, BIOPSY: 1. Focal active colitis (see comment) 2. Negative for microscopic and chronic colitis B) RECTUM, BIOPSY: 1. Normal rectal mucosa 2. Negative for proctitis C) RECTUM, POLYPECTOMY: 1. Hyperplastic polyp 12/04/2023 5:28 PM CDT [facility] [employer] Comment A) Given the patient's colitis symptoms this pattern of inflammation may represent a mild/resolving acute self-limited type colitis of infectious etiology, medication-rela andreea injury (typically NSAID's), or less likely Crohn's colitis. Part A of this case reviewed with Dr. Marixa Reed. 12/04/2023 5:28 PM CDT [facility] [employer] Clinical Information Ms. Elizalde is a 73 y.o. with suspected colitis. Colonoscopy findings: Erythematous mucosa in the rectum. Single rectal polyp, completely removed. 12/04/2023 5:28 PM CDT [facility] [employer]- ENTRAL LABORATORY Gross Description A) Received in formalin [...] patient's name and designated rectum polypectomy. Brandon Erica Zeng 12/03/2023 10:18 AM 12/04/2023 5:28 PM CDT [facility] Microscopic Description The final diagnosis is based on microscopic examination of appropriate sections of all specimens. 12/04/2023 5:28 PM CDT [facility] Additional Information Interpreted at [facility], Central Laboratory - [address], [place] [address] 12/04/2023 5:28 PM CDT [facility] [employer]- ENTRAL LABORATORY Other (Colon Biopsy) 12/02/2023 11:10 AM CDT 12/03/2023 8:53 AM CDT Specimen (specimen) (Rectal Biopsy) 12/02/2023 11:10 AM CDT 12/03/2023 8:53 AM CDT Specimen (specimen) (Rectum) 12/02/2023 11:10 AM CDT 12/03/2023 8:53 AM CDT Hyun Elliott MD PATHOLOGY/CYTOLO GY [facility] [address] [place] [address], * SCAN-COLONOSCOPY (12/02/2023 12:00 AM CDT) Scanner OTHER * SCAN-MAMMOGRAPHY REPORT (03/27/2015 12:00 AM HEMMER LOCKSTITCH) Anatomical Region Laterality Modality Other Scanner OTHER * (ABNORMAL) LIPID PANEL (01/01/2008 12:54 PM CDT) CHOLESTEROL,TOTAL 277(H) 110 - 199 mg/dL [facility] TRIGLYCERIDES 73 <150 mg/dL [facility] HDL CHOLESTEROL 59 >40 mg/dL [facility] CHOL/HDL RATIO 4.69(H) <4.51 [facility] LDL CHOLESTEROL 203(H) <131 mg/dL [facility] PATIENT STATUS Fasting [facility] Blood specimen (specimen) BLOOD SPECIMEN / Unknown 01/01/2008 12:54 PM CDT 01/01/2008 12:53 PM CDT Joslyn Tee NP CHEMISTRY Performing Organization Address [facility] Co de Phone Number [facility] [address] [place] [address] from Last 3 Months or Most Recently Relevant to Health Maintenance Advance Directives * Full Code (Latest Code Status on File) Date Activated Date Inactivated Comments 01/12/2014 10:52 AM 01/12/2014 4:19 PM
== END 2024-02-03 09:20 | disposition home or self-care (01) ==
PROVIDERS: PCP Internal Medicine; Visit Provider Internal Medicine
DX: E78.5 Hyperlipidemia, unspecified (principal); M85.80 Other specified disorders of bone density and structure, unspecified site; I10 Essential (primary) hypertension
CPT/HCPCS: 80048; 80061; 82306

== ENCOUNTER 2025-03-04 08:22 | Outpatient (CLI) | payer MEDICARE, BC, SELFPAY | END 2025-03-04 08:23 | disposition home or self-care (01) | LOC: NFLDREF 03-10 12:34 | PROVIDERS: PCP Internal Medicine; Referring Provider Internal Medicine; Visit Provider Internal Medicine | DX: E78.5 Hyperlipidemia, unspecified (principal); I10 Essential (primary) hypertension; M85.80 Other specified disorders of bone density and structure, unspecified site | CPT/HCPCS: 80048; 80061; 82306 ==

== ENCOUNTER 2025-04-20 13:22 | Outpatient (CLI) | payer MEDICARE, BC, SELFPAY ==
--- NOTE | 2025-04-20 13:20 | CRLHL7_ITS ---
For Patients: As a result of the Century Cures Act, medical imaging exams and procedure reports are released immediately into your electronic medical record. You may view this report before your referring provider. If you have questions, please contact your health care provider. INDICATION: BILATERAL SCREENING MAMMOGRAM, ASYMPTOMATIC 47 Y/O FEMALE COMPARISON: 12/05/2023, 02/12/2023, 02/11/2022 TECHNIQUE: Digital mammogram in CC and MLO projections including computer-aided detection (CAD) and tomosynthesis. BREAST COMPOSITION: There are scattered areas of fibroglandular density. FINDINGS: No suspicious findings. ASSESSMENT: BI-RADS 1 Negative RECOMMENDATION: Annual screening mammogram. A lay language report of this examination will be provided to the patient. Dictated by: Demetrius Butts MD @ 04/21/2025 09:15:19 (Electronically Signed)
--- NOTE | 2025-04-20 14:00 | CRLHL7_ITS ---
For Patients: As a result of the Century Cures Act, medical imaging exams and procedure reports are released immediately into your electronic medical record. You may view this report before your referring provider. If you have questions, please contact your health care provider. DXA BONE MINERAL DENSITY STUDY Reason for exam: Other specified disorders of bone density. Current height (in): 61. Weight (lb.): 121. Menopause age: 60. Ethnicity: White. 1. Have you had a previous hip or vertebral fracture? No. 2. Have you had any fractures during your adult life which did not result from significant trauma (e.g., auto accident)? No. 3. Did either of your parents have a hip fracture? No. 4. Do you smoke? No. 5. Have you ever taken Glucocorticoids? Yes. 6. Do you have rheumatoid arthritis? No. 7. Do you have secondary osteoporosis? No. 8. Do you drink 3 or more alcoholic drinks per day? No. 9. Are you being treated for osteoporosis? No. 10. Have you ever taken any of the following medications: Actonel, Evista, Fosamax, Miacalcin, Reclast, Boniva, Forteo, HRT (i.e. estrogen/hormone therapy), Protelos, Prolia, Vitamin D, Calcium, other ??? please specify. ANSWER: Yes, Vitamin D and Calcium. 11. Do you have any of the following medical conditions: Anorexia or bulimia, asthma or emphysema, end stage renal disease, hyperparathyroidism, any seizure disorders, cancer, inflammatory bowel diseases, hysterectomy, other ??? please specify. ANSWER: No. 12. What was your maximum height (inches)? 61. 13. Do you perform weight bearing exercise regularly? Not provided. 14. Do you regularly consume dairy products? Yes. 15. Do you drink caffeinated beverages? Yes. 16. At what age did your period start? 15. 17. Are you premenopausal? No. 18. How many full-term pregnancies have you had? 2. 19. Have you ever missed your period for more than 6 months in a row (not including or menopause)? No. TECHNIQUE: Bone mineral density study was performed using the [employer]. FINDINGS: The results of the study expressed as bone mineral density (BMD) are as follows: Lumbar spine L1 to L4: BMD: 0.962 g/cm2. T-score: -0.8. Z-score: 1.5. Neck Left: BMD: 0.670 g/cm2. T-score: -1.6. Z-score: 0.3. Right: BMD: 0.629 g/cm2. T-score: -2.0. Z-score: -0.1. Total Left: BMD: 0.870 g/cm2. T-score: -0.6. Z-score: 1.0. Right: BMD: 0.842 g/cm2. T-score: -0.8. Z-score: 0.8. IMPRESSION: Osteopenia. *Comparison exams done prior to 10/2019 were performed on different unit, [email or web address]. COMPARISON: Compared with scan of 12/13/2020, the bone mineral density has decreased by 1.4 percent at the spine and decreased by 2.3 percent at the hip. Compared with scan of 07/13/2015, the bone mineral density has decreased by 4.6 percent at the spine and decreased by 2.9 percent at the hip. FRAX 10-year Fracture Risk Major Osteoporotic Fracture: 18% Hip Fracture: 4.5% Reported Risk Factors: [place] () Neck BMD=0.629, BMI=22.9, glucocorticoids Demetrius Butts M.D. Diagnostic Radiologist [email or web address] CLARIBEL/pat stewart/Dictated by: Demetrius Butts MD @ 04/21/2025 8:47:00 AM (Electronically Signed)
== END 2025-04-20 13:23 | disposition home or self-care (01) ==
LOC: MAMMO 13:22
PROVIDERS: PCP Internal Medicine; Visit Provider Internal Medicine
DX: Z12.31 Encounter for screening mammogram for malignant neoplasm of breast (principal); M85.89 Other specified disorders of bone density and structure, multiple sites
CPT/HCPCS: 77063; 77067; 77080